=== PATIENT | female | born 1980 | race Caucasian/White ===

== ENCOUNTER → 2020-04-30 06:56 | Outpatient (BNVA) | payer SELFPAY | PROVIDERS: Visit Provider Surgery | DX: E66.3 Overweight (principal); K90.9 Intestinal malabsorption, unspecified; Z98.84 Bariatric surgery status | CPT/HCPCS: 99213 ==

== ENCOUNTER 2020-06-23 15:55 | Emergency (ER) | payer OTHER, SELFPAY ==
[2020-06-23 16:24] VITALS: BP 132/83; PULSE 78; RESP 16; TEMP 37.3; O2SAT 98; BMI 26.0
--- NOTE | 2020-06-23 16:41 | ED_ITS ---
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 Tetanus unknown. Dog's vaccination status unknown. Patient denies injury to other area, fever/chills complaint: animal bite Related Data Home Medications Medication Instructions Recorded Confirmed biotin 2,500 mcg capsule 5 mg PO DAILY 04/30/20 04/30/20 Previous Rx's Medication Instructions Recorded docusate sodium 100 mg capsule 100 mg PO DAILY #30 cap 06/10/20 amoxicillin-pot clavulanate 1 tab PO Q12H 7 Days #14 tab 06/23/20 [Augmentin] Allergies Allergy/AdvReac Type Severity Reaction Status Date / Time No Known Allergies Allergy Unverified 04/15/20 16:51 [No Known Allergies*] NKA Allergy Unknown Uncoded 01/21/20 00:00 Review of Systems Review of Systems: Constitutional: No Weight loss, No Fever, No Chills Musculoskeletal: +thigh pain Skin: +dog bite Neuro: No Weakness, No Numbness Yes all other systems are reviewed and are negative [facility] Past Medical History Attestation statement: The following information was validated with the patient. Medical History (Updated 06/23/20 @ 16:57 by [place] rTujillo) Intestinal malabsorption Surgical History (Updated 05/18/20 @ 11:40 by Mario Kumar CMA) History of carpal tunnel surgery Hx of removal of ovary S/P laparoscopic sleeve gastrectomy Family History Family History (Updated 05/18/20 @ 11:48 by Mario Kumar CMA) Father DM (diabetes mellitus) Mother HTN (hypertension) Arthritis Brother No problems noted. Sister No problems noted. Social History Social History (Updated 05/18/20 @ 11:51 by Mario Kumar CMA) Alcohol intake: never Smoking Status: Never smoker Smoked in Last 30 Days: No Substance Use Type: Marijuana Advance Directives: No Advance Directives Information Provided: Yes Physical Exam Vital Signs: Vital Signs: Last Vital Signs Temp 99.2 F 06/23/20 16:24 Pulse 78 11/25/20 16:24 Resp 16 06/23/20 16:24 BP 132/83 06/23/20 16:24 Pulse Ox 98 06/23/20 16:24 Body Mass Index 26.0 Const: General: cooperative and healthy appearing Orientation/consciousness: patient oriented x3 Limitations: no limitations HENMT: Head: Yes normal to inspection Ears: hearing grossly normal bilaterally General nose exam: Normal external nose present Face and sinus: Yes normal facial exam Eyes: General: appearance normal, both eyes and all related structures EOM: EOMs intact bilaterally Neck: Neck: Yes normal visual inspection Resp: Effort & Inspection: normal respiratory effort Skin: Other: +small abrasion and small puncture wound to Right posterior thigh. +mild swelling. No erythema, streaking, fluctuance or induration Neuro: General: patient oriented x3 Gait exam (Neuro): Normal gait present Extrem: General: Yes normal to inspection MDM - Animal Bite MDM Narrative Medical decision making narrative: On exam VSS, NAD/well-appearing, small puncture wound/abrasion with swelling noted to right posterior thigh. We called dog owners listed number, they called back and reported dog is not up-to-date with rabies vaccines Plan: Tetanus, rabies vaccine, rabies immune globulin, 1st dose of Augmentin Discharge Plan Discharge Clinical Impression: Dog bite Qualifiers: Encounter type: initial encounter Qualified Code(s): W54.0XXA - Bitten by dog, initial encounter Patient Disposition: Home, Self-Care Instructions: Animal Bite (ED) Additional Instructions: You were given the rabies vaccine & immune globulin, as well as tetanus vaccine, and the 1st dose of your antibiotic today in the ED Continue taking prescribed antibiotic You need to follow up in short-stay surgery for the remaining rabies vaccines as listed on her paperwork Should be re-evaluated in a couple days Dog bites have a high likelihood of infection, keep a good eye on the area, if swelling worsens, becomes red, comes to a head like a pimple, there streaking, you have fever return to the ED immediately Prescriptions: New amoxicillin-pot clavulanate [Augmentin] 875-125 mg tablet 1 tab PO Q12H 7 Days Qty: 14 RF: 0 No Action docusate sodium [Colace] 100 mg capsule 100 mg PO DAILY Qty: 30 RF: 2 biotin 2,500 mcg capsule 5 mg PO DAILY RF: 0 Referrals: Tere Roman, DO [Primary Care Provider] - 2 days
[2020-06-23] MEDS: Rabies Immune Globulin/PF 300 UNIT/ML VIAL 1249.2 UNIT IM (17:00)
[2020-06-23] MEDS: Rabies Vaccine (PCEC)/PF 1 ML VIAL IM (17:05)
[2020-06-23] MEDS: Amoxicillin/Potassium Clav 875 MG TABLET PO (17:14)
--- NOTE | 2020-06-23 18:02 | PC.NURSE ---
UNABLE TO CHART ON IMMUNOGLOBULIN PHARMACY ERROR WILL NOT ALLOW TO SAVE AND CHART. LOT [id number] GIVEN DIVIDED INTO 2 DOSE THO RVL AND LVL. ADDITION DOSE GIVEN BY [place] COVARRUBIAS TO RIGHT THIGH WOUND NICK.
--- NOTE | 2020-06-23 18:04 | PC.NURSE ---
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
--- NOTE | 2020-06-23 19:49 | PC.NURSE ---
PT ANIMAL BIT REPORT FILLED AND FAXED AND PHAMACY AND MEDICAL SHORT STAY FORMS FILLED AND FAXED.
== END 2020-06-23 17:25 | disposition home or self-care (01) ==
PROVIDERS: Emergency Provider Emergency Medicine; PCP Internal Medicine
DX: S70.371A Other superficial bite of right thigh, initial encounter (principal); S70.311A Abrasion, right thigh, initial encounter; M79.604 Pain in right leg; W54.0XXA Bitten by dog, initial encounter; Y93.9 Activity, unspecified; Y92.9 Unspecified place or not applicable; Y99.9 Unspecified external cause status; Z79.899 Other long term (current) drug therapy
CPT/HCPCS: 90375; 90471; 90472; 90675; 90715; 96372; 99284

== ENCOUNTER 2020-06-26 11:24 | Emergency (ER) | payer OTHER, SELFPAY ==
--- NOTE | 2020-06-26 11:52 | ED.GENADULT ---
HPI - General Adult General Chief complaint: General Medical Stated complaint: rabies shot Time Seen by Provider: 06/26/20 11:52 Source: patient Mode of arrival: ambulatory Limitations: no limitations History of Present Illness HPI narrative: 40 y/o female presents to the ER for her rabies vaccine. She was seen here on 06/23 and treated with her 1st dose after she was bit by a dog. With the holiday and weekend coverage she was unable to make an appointment with short-stay for her day 3 dose so she came to the ER for this. She has been taking her prescribed Augmentin and wound is healing. complaint: rabies shot Related Data Home Medications Medication Instructions Recorded Confirmed biotin 2,500 mcg capsule 5 mg PO DAILY 04/30/20 04/30/20 Previous Rx's Medication Instructions Recorded docusate sodium 100 mg capsule 100 mg PO DAILY #30 cap 06/10/20 amoxicillin-pot clavulanate 1 tab PO Q12H 7 Days #14 tab 06/23/20 [Augmentin] Allergies Allergy/AdvReac Type Severity Reaction Status Date / Time No Known Allergies Allergy Verified 06/26/20 11:59 [No Known Allergies*] NKA Allergy Unknown Unknown Uncoded 06/26/20 11:59 Review of Systems Review of Systems: Yes all other systems are reviewed and are negative PMFSH Past Medical History Attestation statement: The following information was validated with the patient. Medical History Intestinal malabsorption Surgical History History of carpal tunnel surgery Hx of removal of ovary S/P laparoscopic sleeve gastrectomy Family History Family History (Updated 05/18/20 @ 11:48 by Mario Kumar CMA) Father DM (diabetes mellitus) Mother HTN (hypertension) Arthritis Brother No problems noted. Sister No problems noted. Social History Social History (Updated 05/18/20 @ 11:51 by Mario Kumar CMA) Alcohol intake: never Smoking Status: Never smoker Substance Use Type: Marijuana Advance Directives: No Advance Directives Information Provided: Yes Physical Exam Vital Signs: Vital Signs: Last Vital Signs Temp 97.2 F 06/26/20 11:56 Pulse 67 06/26/20 11:56 Resp 17 06/26/20 11:56 BP 111/70 06/26/20 11:56 Pulse Ox 100 06/26/20 11:56 Body Mass Index 25.9 Appearance: Alert. Oriented X3. No acute distress. HEENT: normal inspection Respiratory: No respiratory distress. Skin: Skin warm and dry. Normal skin color. Normal skin turgor. No rashes. Extremities: left lower posterior thigh with superficial healing abrasions, no surrounding erythema or purulent drainage. Course Course Course Narrative: 40 yo female presenting for day 3 rabies shot. Unable to be done as outpatient today. Number provided for day #7 shot. Discharge Plan Discharge Clinical Impression: Dog bite Qualifiers: Encounter type: subsequent encounter Qualified Code(s): W54.0XXD - Bitten by dog, subsequent encounter Patient Disposition: Home, Self-Care Instructions: Rabies Vaccine (By injection) Additional Instructions: Call the number provided to arrange for additional Rabies Vaccinations. You are next due for your vaccine 7 days from the initial incounter. Continue to take the Augmentin to help prevent infection. The wound appears to be healing nicely. Prescriptions: No Action docusate sodium [Colace] 100 mg capsule 100 mg PO DAILY Qty: 30 RF: 2 amoxicillin-pot clavulanate [Augmentin] 875-125 mg tablet 1 tab PO Q12H 7 Days Qty: 14 RF: 0 biotin 2,500 mcg capsule 5 mg PO DAILY RF: 0
[2020-06-26 11:56] VITALS: BP 111/70; PULSE 67; RESP 17; TEMP 36.2; O2SAT 100; BMI 25.9
[2020-06-26] MEDS: Rabies Vaccine (PCEC)/PF 1 ML VIAL IM (12:05)
== END 2020-06-26 12:44 | disposition home or self-care (01) ==
PROVIDERS: Emergency Provider Internal Medicine; PCP Internal Medicine
DX: T14.8XXA Other injury of unspecified body region, initial encounter (principal); W54.0XXA Bitten by dog, initial encounter; Y93.9 Activity, unspecified; Y92.9 Unspecified place or not applicable; Y99.9 Unspecified external cause status; Z23 Encounter for immunization; Z98.84 Bariatric surgery status
CPT/HCPCS: 90471; 90675; 99283; 99284

== ENCOUNTER 2020-06-30 12:53 | Outpatient (REF) | payer OTHER, SELFPAY | END 2020-06-30 12:54 | disposition home or self-care (01) | LOC: HO.MDS 12:53 | PROVIDERS: PCP Internal Medicine; Visit Provider Physician Assistant | DX: Z29.14 Encounter for prophylactic rabies immune globulin (principal); S70.371D Other superficial bite of right thigh, subsequent encounter; W54.0XXD Bitten by dog, subsequent encounter; Z20.3 Contact with and (suspected) exposure to rabies | CPT/HCPCS: 90471; 90675 ==

== ENCOUNTER → 2020-07-08 08:03 | Outpatient (BNVA) | payer OTHER, SELFPAY | PROVIDERS: PCP Internal Medicine; Referring Provider Internal Medicine; Visit Provider Physician Assistant | DX: Z76.89 Persons encountering health services in other specified circumstances (principal) ==

== ENCOUNTER → 2020-07-13 08:13 | Outpatient (BNVA) | payer OTHER, SELFPAY | PROVIDERS: PCP Internal Medicine; Visit Provider Dietitian, Registered | DX: Z76.89 Persons encountering health services in other specified circumstances (principal) ==

== ENCOUNTER 2020-07-16 12:57 | Emergency (ER) | payer OTHER, SELFPAY ==
[2020-07-16 13:31] VITALS: BP 120/71; PULSE 66; RESP 18; TEMP 36.4; O2SAT 100; BMI 25.4
--- NOTE | 2020-07-16 13:37 | ED.GENADULT ---
HPI - General Adult General Chief complaint: General Medical Stated complaint: needs last rabies shot? Time Seen by Provider: 07/16/20 13:33 Source: patient Mode of arrival: ambulatory Limitations: no limitations History of Present Illness HPI narrative: 32-year-old female with no known past medical history presenting seeking her last rabies vaccination. Offers no complaints. She did try to contact short-stay surgery however they did not order some advice from the emergency room for her last vaccination. Her vaccination schedule as follows 06/23, 06/26, and today. Onset (ago): minute(s) Treatments prior to arrival: none Related Data Home Medications Medication Instructions Recorded Confirmed biotin 2,500 mcg capsule 5 mg PO DAILY 04/30/20 07/08/20 Previous Rx's Medication Instructions Recorded docusate sodium 100 mg capsule 100 mg PO DAILY #30 cap 06/10/20 amoxicillin-pot clavulanate 1 tab PO Q12H 7 Days #14 tab 06/23/20 [Augmentin] calcium citrate 250 mg 2 tab PO BID #120 tab 07/13/20 calcium-vitamin D3 5 mcg (200 unit) tablet Allergies Allergy/AdvReac Type Severity Reaction Status Date / Time No Known Allergies Allergy Verified 07/16/20 13:31 [No Known Allergies*] NKA Allergy Unknown Unknown Uncoded 06/26/20 11:59 Review of Systems Review of Systems: Constitutional: No Weight loss, No Fever, No Chills, No Night Sweats, No Fatigue, No Malaise ENT/Mouth: No Hearing loss, No Ear Pain, No Nasal Congestion, No Sinus Pain, No Hoarseness, No sore throat, No Rhinorrhea, No Swallowing Difficulty Eyes: No Eye Pain, No Vision Changes Cardiovascular: No Chest Pain Respiratory: No Cough, No Sputum, No Wheezing, No Smoke Exposure, No Dyspnea Gastrointestinal:No abdominal Pain Genitourinary: , No Dysuria Musculoskeletal: No joint pain, No Myalgias Skin: No rash Neuro: No Weakness, No Numbness, No Paresthesias, No Loss of Consciousness, No Dizziness, No Headache Heme/Lymph: No Bruising, No Bleeding,No Lymphadenopathy Endocrine: No Polyuria, No Polydipsia, No Temperature Intolerance Yes all other systems are reviewed and are negative [facility] Past Medical History Medical History (Updated 07/16/20 @ 13:41 by Corby Quiros, [employer] WORKER) BMI 25.0-25.9,adult Intestinal malabsorption Intestinal malabsorption following gastrectomy Surgical History (Updated 07/08/20 @ 09:56 by Karen Jarvis PA-C) History of carpal tunnel surgery Hx of removal of ovary S/P laparoscopic sleeve gastrectomy Family History Family History Father DM (diabetes mellitus) Mother HTN (hypertension) Arthritis Brother No problems noted. Sister No problems noted. Social History Social History Alcohol intake: never Smoking Status: Never smoker Substance Use Type: Marijuana Advance Directives: No Advance Directives Information Provided: Yes Physical Exam Vital Signs: Vital Signs: Last Vital Signs Temp 97.6 F 07/16/20 13:31 Pulse 66 07/16/20 13:31 Resp 18 07/16/20 13:31 BP 120/71 07/16/20 13:31 Pulse Ox 100 07/16/20 13:31 Body Mass Index 25.4 Reviewed Const: General: cooperative and healthy appearing; No acute distress or intoxicated appearing Nutritional Appearance: average body habitus Orientation/consciousness: patient oriented x3 Chest: Chest palpation & inspection: normal inspection of the chest Resp: Effort & Inspection: normal respiratory effort Cardio: Jugular venous distension: no JVD Skin: General skin exam: no rashes or lesions noted Neuro: General: patient oriented x3 Extrem: General: Yes normal to inspection Course Course Course Narrative: Given last rabies vaccination. Discharge Plan Discharge Clinical Impression: Encounter for repeat administration of rabies vaccination Patient Disposition: Home, Self-Care Instructions: Rabies Vaccine (By injection) Prescriptions: No Action docusate sodium [Colace] 100 mg capsule 100 mg PO DAILY Qty: 30 RF: 2 amoxicillin-pot clavulanate [Augmentin] 875-125 mg tablet 1 tab PO Q12H 7 Days Qty: 14 RF: 0 calcium citrate-vitamin D3 250 mg-5 mcg (200 unit) tablet 2 tab PO BID Qty: 120 RF: 11 biotin 2,500 mcg capsule 5 mg PO DAILY RF: 0 Referrals: Tere Roman DO [Primary Care Provider] - 1 week
[2020-07-16] MEDS: Rabies Vaccine (PCEC)/PF 1 ML VIAL IM (13:43)
== END 2020-07-16 13:50 | disposition home or self-care (01) ==
PROVIDERS: Emergency Provider Emergency Medicine Emergency Medical Services; PCP Internal Medicine
DX: Z20.3 Contact with and (suspected) exposure to rabies (principal)
CPT/HCPCS: 90471; 90675; 99282; 99284

== ENCOUNTER 2020-07-20 08:33 | Outpatient (REF) | payer OTHER, SELFPAY ==
[2020-07-20 09:12] LABS: Basophils Percent Auto 0.6 % (0-2); Eosinophils Absolute Auto 0.1 X10*3/uL (0.0-0.4); Eosinophils Percent Auto 2.8 % (0-4); Hematocrit 40.6 % (37-47); Hemoglobin 13.8 g/dl (12.0-16.0); Imm Gran Abs Auto 0.01 X10*3/uL (0.00-0.03); Imm Gran Pct Auto 0.3 % (0.0-0.4); Lymphocytes Absolute Auto 1.6 X10*3/uL (1.2-4.9); Lymphocytes Percent Auto 45.4 % (20-40); MANUAL DIFF FLAG NO; Mean Corpuscular Hemoglobin 30.5 pg (27.0-33.0); Mean Corpuscular Volume 89.8 fL (80-98); Mean Platelet Volume 10.6 fL (9.4-12.3); Monocytes Absolute Auto 0.3 X10*3/uL (0.1-1.2); Neutrophils Absolute Auto 1.6 X10*3/uL (2.0-8.3); Neutrophils Percent Auto 43.9 % (45-73); Platelet Count 144 X10*3/uL (160-400); Red Blood Count 4.52 X10*6/uL (4.20-5.50); Red Cell Distribution Width 13.7 % (11.0-16.0); White Blood Count 3.6 X10*3/uL (4.8-10.8)
[2020-07-20 09:57] LABS: Alanine Aminotransferase 13 U/L (0-31); Albumin Level 4.2 g/dL (3.5-5.0); Alkaline Phosphatase 47 U/L (39-117); Anion Gap 11 (12-20); Aspartate Amino Transferase 17 U/L (5-31); Bilirubin Total 0.9 mg/dL (0.0-1.0); Blood Urea Nitrogen 16 mg/dL (9-16); C Reactive Protein 0.11 mg/dL (< or = 0.50); Calcium 9.1 mg/dL (8.4-10.2); Carbon Dioxide 31 mmol/L (22-29); Chloride 103 mmol/L (96-108); Cholesterol 192 mg/dL; Estimated Glomerular Filt Rate > 60; Glucose Fasting 76 mg/dL (60-99); HDL Cholesterol 45 mg/dL; Iron 83 mcg/dL (30-160); LDL Cholesterol Calculated 133 mg/dl; Percent Iron Saturation 33 % (15-50); Sodium 141 mmol/L (135-145); Total Iron Binding Capacity 250 mcg/dL (228-428); Total Protein 6.1 g/dL (6.5-8.0); Triglycerides 74 mg/dL; Unsaturated Iron Binding 167 ug/dL
[2020-07-20 09:58] LABS: Estimated Average Glucose 91 mg/dL; Hemoglobin A1c % 4.8 %
[2020-07-20 10:19] LABS: Ferritin 61 ng/mL (10-122); TSH reflex Free T4 0.61 mIU/mL (0.32-4.0); Vitamin D 25-OH Total 50.3 ng/mL (>30)
[2020-07-20 10:29] LABS: Folate 12.7 ng/mL (> or = 4.0); Vitamin B12 797 pg/mL (200-900)
[2020-07-21 16:37] LABS: Calcium (PTHI) 9.1 mg/dL (8.6-10.2); PTHI 19 pg/mL (14-64)
[2020-07-21 18:57] LABS: Insulin Level Total 2.2 uIU/mL
[2020-07-24 14:57] LABS: Zinc 66 mcg/dL (60-130)
[2020-07-25 12:03] LABS: Vitamin B1 29 nmol/L (8-30)
[2020-07-25 23:32] LABS: Vitamin A 28 mcg/dL (38-98)
== END 2020-07-20 08:34 | disposition home or self-care (01) ==
LOC: HO.LAB 08:33
PROVIDERS: PCP Internal Medicine; Visit Provider Physician Assistant
DX: K91.2 Postsurgical malabsorption, not elsewhere classified (principal); Z90.3 Acquired absence of stomach [part of]; E66.01 Morbid (severe) obesity due to excess calories; Z68.25 Body mass index [BMI] 25.0-25.9, adult
CPT/HCPCS: 36415; 80053; 80061; 82306; 82607; 82728; 82746; 83036; 83525; 83540; 83970; 84425; 84443; 84590; 84630; 85025; 86140

== ENCOUNTER → 2020-08-24 10:31 | Outpatient (BNVA) | payer OTHER, SELFPAY | PROVIDERS: PCP Internal Medicine; Visit Provider Dietitian, Registered ==

== ENCOUNTER → 2020-09-23 08:11 | Outpatient (BNVA) | payer OTHER, SELFPAY | PROVIDERS: PCP Physician Assistant; Visit Provider Physician Assistant ==

== ENCOUNTER → 2020-09-27 08:24 | Outpatient (BNVA) | payer OTHER, SELFPAY | PROVIDERS: PCP Physician Assistant; Visit Provider Physician Assistant ==

== ENCOUNTER → 2020-10-15 07:27 | Outpatient (BNVA) | payer OTHER, SELFPAY | PROVIDERS: PCP Physician Assistant; Visit Provider Surgery ==

== ENCOUNTER → 2020-10-25 08:48 | Outpatient (BNVA) | payer OTHER, SELFPAY | PROVIDERS: PCP Physician Assistant; Visit Provider Physician Assistant ==

== ENCOUNTER → 2020-11-26 08:13 | Outpatient (BNVA) | payer OTHER, SELFPAY | PROVIDERS: PCP Physician Assistant; Visit Provider Surgery ==

== ENCOUNTER → 2020-11-30 11:08 | Outpatient (BNVA) | payer OTHER, SELFPAY | PROVIDERS: PCP Physician Assistant; Visit Provider Physician Assistant ==

== ENCOUNTER → 2021-01-03 07:44 | Outpatient (BNVA) | payer OTHER, SELFPAY | PROVIDERS: PCP Physician Assistant; Visit Provider Surgery ==

== ENCOUNTER → 2021-02-18 07:27 | Outpatient (BNVA) | payer OTHER, SELFPAY | PROVIDERS: PCP Physician Assistant; Visit Provider Surgery ==

== ENCOUNTER → 2021-03-07 10:56 | Outpatient (BNVA) | payer OTHER, SELFPAY | PROVIDERS: PCP Physician Assistant; Visit Provider Physician Assistant ==

== ENCOUNTER → 2021-04-08 08:08 | Outpatient (BNVA) | payer OTHER, SELFPAY | PROVIDERS: Visit Provider Physician Assistant Surgical ==

== ENCOUNTER 2021-04-11 06:38 | Outpatient (REF) | payer OTHER, SELFPAY ==
[2021-04-11 07:37] LABS: MANUAL DIFF FLAG NO
[2021-04-11 07:43] LABS: Eosinophils Absolute Auto 0.1 X10*3/uL (0.0-0.4); Eosinophils Percent Auto 3.4 % (0-4); Hematocrit 38.3 % (37-47); Hemoglobin 12.4 g/dl (12.0-16.0); Imm Gran Abs Auto 0.01 X10*3/uL (0.00-0.03); Imm Gran Pct Auto 0.3 % (0.0-0.4); Lymphocytes Absolute Auto 1.7 X10*3/uL (1.2-4.9); Lymphocytes Percent Auto 42.8 % (20-40); Mean Corpuscular HGB Conc 32.4 g/dl (31.0-35.0); Mean Corpuscular Hemoglobin 28.2 pg (27.0-33.0); Mean Platelet Volume 9.2 fL (9.4-12.3); Monocytes Absolute Auto 0.4 X10*3/uL (0.1-1.2); Monocytes Percent Auto 10.1 % (2-11); Neutrophils Absolute Auto 1.7 X10*3/uL (2.0-8.3); Neutrophils Percent Auto 42.4 % (45-73); Platelet Count 187 X10*3/uL (160-400); Red Cell Distribution Width 12.9 % (11.0-16.0); White Blood Count 3.9 X10*3/uL (4.8-10.8)
[2021-04-11 08:22] LABS: Alanine Aminotransferase 14 U/L (0-31); Albumin Level 3.9 g/dL (3.5-5.0); Alkaline Phosphatase 56 U/L (39-117); Anion Gap 10 (12-20); Aspartate Amino Transferase 20 U/L (5-31); Bilirubin Total 0.5 mg/dL (0.0-1.0); Blood Urea Nitrogen 17 mg/dL (9-16); C Reactive Protein 0.11 mg/dL (< or = 0.50); Calcium 9.3 mg/dL (8.4-10.2); Carbon Dioxide 29 mmol/L (22-29); Chloride 106 mmol/L (96-108); Cholesterol 176 mg/dL; Estimated Glomerular Filt Rate > 60; Glucose Random 84 mg/dL (60-115); HDL Cholesterol 75 mg/dL; Iron 65 mcg/dL (30-160); LDL Cholesterol Calculated 95 mg/dl; Percent Iron Saturation 15 % (15-50); Potassium 4.2 mmol/L (3.3-5.1); Sodium 141 mmol/L (135-145); Total Iron Binding Capacity 420 mcg/dL (228-428); Total Protein 5.8 g/dL (6.5-8.0); Triglycerides 32 mg/dL; Unsaturated Iron Binding 355 ug/dL
[2021-04-11 08:25] LABS: Estimated Average Glucose 100 mg/dL; Hemoglobin A1c % 5.1 %
[2021-04-11 08:42] LABS: Ferritin 5 ng/mL (10-122); TSH reflex Free T4 0.55 uIU/mL (0.32-4.0)
[2021-04-11 09:57] LABS: Folate 18.3 ng/mL (> or = 4.0); Vitamin B12 788 pg/mL (200-900)
[2021-04-12 09:40] LABS: Insulin Level Total 2.8 uIU/mL
[2021-04-12 16:52] LABS: Calcium (PTHI) 9.1 mg/dL (8.6-10.2); PTHI 18 pg/mL (14-64)
[2021-04-14 06:25] LABS: Zinc 78 mcg/dL (60-130)
[2021-04-15 03:16] LABS: Vitamin A 37 mcg/dL (38-98)
[2021-04-16 11:36] LABS: Vitamin B1 26 nmol/L (8-30)
== END 2021-04-11 06:39 | disposition home or self-care (01) ==
LOC: HO.LAB 06:38
PROVIDERS: Visit Provider Physician Assistant Surgical
DX: Z68.29 Body mass index [BMI] 29.0-29.9, adult (principal)
CPT/HCPCS: 36415; 80053; 80061; 82306; 82607; 82728; 82746; 83036; 83525; 83540; 83970; 84425; 84443; 84590; 84630; 85025; 86140

== ENCOUNTER 2021-04-22 08:58 | Outpatient (REF) | payer OTHER, SELFPAY ==
--- NOTE | ~2021-04-22 | FL_ITS ---
EXAMINATION: XR GI SERIES CLINICAL INFORMATION: Previous gastric reduction/sleeve surgery. Followup. COMPARISON: None TECHNIQUE: Routine upper GI air-contrast study was performed. FINDINGS: Following oral administration of thick barium and effervescent granules, there is normal propagation of bolus from the oral cavity through the pharynx, esophagus into stomach without any evidence of obstruction, narrowing or stricture. The stomach is folded into a C configuration resulting in slight emptying difficulty in supine lying position. It promptly emptied on prone position. Otherwise, the visualized stomach, duodenal bulb and the sweep are normal. No gastroesophageal reflux visualized. FLUOROSCOPY TIME: 2.8 minutes DOSE AREA PRODUCT: 30.318 uGy-m2 (microgray-meter squared) FL/FL upper GI series IMPRESSION: Evidence of previous gastric sleeve surgical changes with slightly folded stomach on itself resulting in mild difficulty in emptying of fundus in supine and upright views. No gastroesophageal reflux was seen.
== END 2021-04-22 08:59 | disposition home or self-care (01) ==
LOC: HO.XRAY 08:58
PROVIDERS: Visit Provider Physician Assistant Surgical
DX: K21.9 Gastro-esophageal reflux disease without esophagitis (principal); E66.9 Obesity, unspecified; Z68.29 Body mass index [BMI] 29.0-29.9, adult; Z71.3 Dietary counseling and surveillance
CPT/HCPCS: 74240; 97803

== ENCOUNTER → 2021-05-06 07:57 | Outpatient (BNVA) | payer OTHER, SELFPAY | PROVIDERS: Visit Provider Physician Assistant Surgical ==

== ENCOUNTER 2021-05-13 07:09 | Outpatient (REF) | payer OTHER, SELFPAY ==
[2021-05-19 15:26] LABS: Vitamin A 30 mcg/dL (38-98)
== END 2021-05-13 07:10 | disposition home or self-care (01) ==
LOC: HO.LAB 07:09
PROVIDERS: Visit Provider Physician Assistant Surgical
DX: E50.9 Vitamin A deficiency, unspecified (principal); E66.9 Obesity, unspecified
CPT/HCPCS: 36415; 84590

== ENCOUNTER → 2021-05-27 08:20 | Outpatient (BNVA) | payer OTHER, SELFPAY | PROVIDERS: Referring Provider Surgery; Visit Provider Dietitian, Registered | DX: E66.9 Obesity, unspecified (principal); Z68.30 Body mass index [BMI] 30.0-30.9, adult | CPT/HCPCS: 97803 ==

== ENCOUNTER → 2021-06-17 07:58 | Outpatient (BNVA) | payer OTHER, SELFPAY | PROVIDERS: Visit Provider Physician Assistant Surgical ==

== ENCOUNTER 2021-07-15 07:58 | Outpatient (REF) | payer OTHER, SELFPAY ==
[2021-07-15 10:33] LABS: Iron 60 mcg/dL (30-160); Percent Iron Saturation 14 % (15-50); Total Iron Binding Capacity 444 mcg/dL (228-428); Unsaturated Iron Binding 384 ug/dL
[2021-07-15 10:45] LABS: Ferritin 9 ng/mL (10-122); Vitamin D 25-OH Total 40.8 ng/mL (>30)
[2021-07-15 11:06] LABS: Folate > 20.0 ng/mL (> or = 4.0); Vitamin B12 1024 pg/mL (200-900)
[2021-07-19 15:46] LABS: Zinc 94 mcg/dL (60-130)
[2021-07-20 21:27] LABS: Vitamin A 30 mcg/dL (38-98)
[2021-07-22 09:31] LABS: Vitamin B1 53 nmol/L (8-30)
== END 2021-07-15 07:59 | disposition home or self-care (01) ==
LOC: HO.LAB 07:58
PROVIDERS: PCP Internal Medicine; Visit Provider Physician Assistant Surgical
DX: E66.9 Obesity, unspecified (principal); Z68.30 Body mass index [BMI] 30.0-30.9, adult; E50.9 Vitamin A deficiency, unspecified; K21.9 Gastro-esophageal reflux disease without esophagitis; Z90.3 Acquired absence of stomach [part of]
CPT/HCPCS: 36415; 82306; 82607; 82728; 82746; 83540; 84425; 84590; 84630

== ENCOUNTER → 2021-09-16 08:10 | Outpatient (BNVA) | payer OTHER, SELFPAY | PROVIDERS: Visit Provider Physician Assistant Surgical ==

== ENCOUNTER 2021-10-07 13:20 | Outpatient (REF) | payer OTHER, SELFPAY ==
[2021-10-07 14:40] LABS: Iron 73 mcg/dL (30-160); Percent Iron Saturation 19 % (15-50); Total Iron Binding Capacity 377 mcg/dL (228-428); Unsaturated Iron Binding 304 ug/dL
[2021-10-07 15:01] LABS: Vitamin D 25-OH Total 43.7 ng/mL (>30)
[2021-10-13 12:51] LABS: Vitamin A 32 mcg/dL (38-98)
== END 2021-10-07 13:21 | disposition home or self-care (01) ==
LOC: HO.LAB 13:20
PROVIDERS: PCP Internal Medicine; Visit Provider Physician Assistant Surgical
DX: E50.9 Vitamin A deficiency, unspecified (principal); K91.2 Postsurgical malabsorption, not elsewhere classified; Z90.3 Acquired absence of stomach [part of]
CPT/HCPCS: 36415; 82306; 83540; 84590

== ENCOUNTER → 2021-10-14 14:48 | Outpatient (BNVA) | payer OTHER, SELFPAY | PROVIDERS: PCP Internal Medicine; Referring Provider Internal Medicine; Visit Provider Physician Assistant Surgical | DX: Z13.89 Encounter for screening for other disorder (principal) ==

== ENCOUNTER → 2021-12-23 10:27 | Outpatient (BNVA) | payer OTHER, SELFPAY | PROVIDERS: PCP Internal Medicine; Visit Provider Physician Assistant Surgical | DX: E66.9 Obesity, unspecified (principal) ==

== ENCOUNTER 2022-02-17 06:43 | Outpatient (REF) | payer OTHER, SELFPAY ==
[2022-02-17 06:58] LABS: MANUAL DIFF FLAG NO
[2022-02-17 07:54] LABS: Basophils Percent Auto 0.8 % (0-2); Eosinophils Absolute Auto 0.1 X10*3/uL (0.0-0.4); Eosinophils Percent Auto 2.3 % (0-4); Hematocrit 45.9 % (37.0-47.0); Hemoglobin 15.2 g/dl (12.0-16.0); Imm Gran Abs Auto 0.01 X10*3/uL (0.00-0.03); Imm Gran Pct Auto 0.2 % (0.0-0.4); Lymphocytes Absolute Auto 1.7 X10*3/uL (1.2-4.9); Lymphocytes Percent Auto 33.7 % (20-40); Mean Corpuscular HGB Conc 33.1 g/dl (31.0-35.0); Mean Corpuscular Hemoglobin 29.5 pg (27.0-33.0); Mean Corpuscular Volume 89.1 fL (80.0-98.0); Mean Platelet Volume 9.5 fL (9.4-12.3); Monocytes Absolute Auto 0.4 X10*3/uL (0.1-1.2); Monocytes Percent Auto 8.3 % (2-11); Neutrophils Absolute Auto 2.8 x10*3/uL (2.0-8.3); Neutrophils Percent Auto 54.7 % (45-73); Platelet Count 212 X10*3/uL (160-400); Red Blood Count 5.15 X10*6/uL (4.20-5.50); Red Cell Distribution Width 12.2 % (11.0-16.0); White Blood Count 5.2 X10*3/uL (4.8-10.8)
[2022-02-17 08:20] LABS: Alanine Aminotransferase 11 U/L (0-31); Albumin Level 4.4 g/dL (3.5-5.0); Alkaline Phosphatase 59 U/L (39-117); Anion Gap 12 (12-20); Aspartate Amino Transferase 19 U/L (5-31); Bilirubin Total 0.7 mg/dL (0.0-1.0); Blood Urea Nitrogen 17 mg/dL (9-16); C Reactive Protein 0.16 mg/dL (< or = 0.50); Calcium 9.5 mg/dL (8.4-10.2); Carbon Dioxide 27 mmol/L (22-29); Chloride 104 mmol/L (96-108); Cholesterol 204 mg/dL; Estimated Glomerular Filt Rate > 60; Glucose Random 81 mg/dL (60-115); HDL Cholesterol 69 mg/dL; Iron 82 mcg/dL (30-160); LDL Cholesterol Calculated 126 mg/dl; Percent Iron Saturation 20 % (15-50); Potassium 4.4 mmol/L (3.3-5.1); Sodium 139 mmol/L (135-145); Total Iron Binding Capacity 402 mcg/dL (228-428); Total Protein 6.8 g/dL (6.5-8.0); Triglycerides 49 mg/dL; Unsaturated Iron Binding 320 ug/dL
[2022-02-17 08:43] LABS: Ferritin 11 ng/mL (10-250); Insulin 8 uU/mL (2-29); TSH reflex Free T4 0.65 uIU/mL (0.32-4.0); Vitamin D 25-OH Total 42.1 ng/mL (>30)
[2022-02-17 08:45] LABS: Estimated Average Glucose 94 mg/dL; Hemoglobin A1c % 4.9 %
[2022-02-17 10:54] LABS: Folate > 20.0 ng/mL (> or = 4.0); Vitamin B12 965 pg/mL (200-900)
[2022-02-21 15:52] LABS: Calcium (PTHI) 9.6 mg/dL (8.6-10.2); PTHI 15 pg/mL (16-77)
[2022-02-22 12:52] LABS: Zinc 111 mcg/dL (60-130)
[2022-02-24 17:11] LABS: Vitamin A 34 mcg/dL (38-98)
[2022-02-25 06:56] LABS: Vitamin B1 58 nmol/L (8-30)
== END 2022-02-17 06:44 | disposition home or self-care (01) ==
LOC: HO.LAB 06:43
PROVIDERS: Visit Provider Physician Assistant Surgical
DX: Z98.84 Bariatric surgery status (principal)
CPT/HCPCS: 36415; 80053; 80061; 82306; 82607; 82728; 82746; 83036; 83525; 83540; 83970; 84425; 84443; 84590; 84630; 85025; 86140

== ENCOUNTER 2022-02-27 09:02 | Emergency (ER) | payer OTHER, SELFPAY ==
[2022-02-27 09:07] VITALS: BP 125/76; PULSE 66; RESP 16; TEMP 36.6; O2SAT 99; BMI 34.2
--- NOTE | 2022-02-27 09:52 | ED.GENADULT ---
HPI - General Adult General Chief complaint: Back Pain/Injury Stated complaint: right side back pain, hurts to breathe Time Seen by Provider: 02/27/22 09:52 Source: patient Mode of arrival: ambulatory Limitations: no limitations History of Present Illness HPI narrative: Patient is a 42 year old female presenting to the emergency department today with side pain. Patient states that for the last day she has had right sided pain that is worse with deep breathing. Patient denies any dizziness, lightheadedness, abdominal pain, nausea, vomiting, fever, chills, blurry vision, double vision, loss of vision, chest pain, difficulty breathing, shortness of breath, back pain, night sweats, pain with urination, increased urinary frequency, increased urinary urgency, blood in her urine or stool, syncope or a near syncopal episode, recent trauma or falls, bowel incontinence, bladder incontinence, bowel retention, bladder retention, or any other complaints at this time. Onset (ago): day(s) (1) Radiation: non-radiation Severity: mild Severity scale (1-10): 2 Quality: dull Relieving factors: other (deep breaths) Exacerbating factors: none Associated symptoms: denies other symptoms Treatments prior to arrival: NSAID Related Data Home Medications Medication Instructions Recorded Confirmed biotin 2,500 mcg capsule 5 mg PO DAILY 04/30/20 02/10/22 celebrate MVI PO DAILY 12/23/21 02/10/22 fluoxetine 10 mg capsule 30 mg PO DAILY 02/10/22 02/10/22 Previous Rx's Medication Instructions Recorded iron,carbonyl 65 mg-vitamin C 125 1 tab PO DAILY #30 tabs 07/15/21 mg tablet,delayed release (Vitron-C) vitamin A 10,000 unit capsule 1 cap PO DAILY #30 caps 12/28/21 calcium citrate 500 mg PO BID #360 tabs 12/30/21 cyclobenzaprine 10 mg tablet 10 mg PO TID PRN muscle spasm 7 02/27/22 days #21 tabs Allergies Allergy/AdvReac Type Severity Reaction Status Date / Time No Known Allergies Allergy Verified 10/14/21 15:03 [No Known Allergies*] NKA Allergy Unknown Unknown Uncoded 11/30/20 11:08 Review of Systems Constitutional: Constitutional: Reports no additional constitutional complaints, Denies chills, Denies fever(s) and Denies night sweats Eyes: Eyes: Reports no additional eye complaints, Denies blurry vision, Denies change in vision, Denies diplopia, Denies eye discharge, Denies loss of vision and Denies eye pain ENT: Denies dizziness Cardiovascular: Cardiovascular: Reports no additional cardiovascular complaints, Denies chest pain, Denies lightheadedness, Denies Loss of Consciousness and Denies dyspnea Respiratory: Respiratory: Reports no additional respiratory complaints and Denies dyspnea Gastrointestinal: Gastrointestinal: Reports no additional gastrointestinal complaints, Denies abdominal pain, Denies melena, Denies hematochezia, Denies change in bowel habits and Denies change in stool character Genitourinary: Genitourinary: Denies hematuria, Denies urinary frequency, Denies dysuria, Denies urinary incontinence, Denies urinary hesitancy and Denies urinary urgency Musculoskeletal: Musculoskeletal: Reports no additional musculoskeletal complaints, Denies numbness and Denies tingling Neurologic: Denies dizziness, Denies loss of vision, Denies numbness and Denies tingling Psychiatric: Psychiatric: Reports no additional psychiatric complaints Endocrine: Endocrine: Reports no additional endocrine complaints Hematologic/Lymphatic: Hematologic/Lymphatic: Reports no additional hematologic/lymphatic complaints Allergic/Immunologic: Allergic/Immunologic: Reports no additional allergic/immunologic complaints PMF Past Medical History Attestation statement: The following information was validated with the patient. Source: old records reviewed Medical History BMI 25.0-25.9,adult Chronic constipation Intestinal malabsorption Intestinal malabsorption following gastrectomy Surgical History History of carpal tunnel surgery Hx of removal of ovary S/P laparoscopic sleeve gastrectomy Family History Family History Father DM (diabetes mellitus) Mother HTN (hypertension) Arthritis Brother No problems noted. Sister No problems noted. 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 Physical Exam ED Vital Signs: Vital Signs - 24 hr 08/01/22 09:07 Temperature 97.8 F Pulse Rate 66 Respiratory Rate 16 Blood Pressure 125/76 Pulse Oximetry 99 Oxygen Delivery Method Room Air BMI result Body Mass Index 34.2 Const General: cooperative, no acute distress, alert and awake Nutritional Appearance: well nourished Orientation/consciousness: patient oriented x3 Limitations: no limitations HENMT Head: Yes normal to inspection and Yes atraumatic Ears: hearing grossly normal bilaterally and external ears normal General nose exam: Normal external nose present, no nasal discharge noted and no epistaxis Face and sinus: Yes normal facial exam, No abrasion and No laceration Mouth: Normal oral and palatal mucosa present, no drooling and no muffled voice Eyes General: appearance normal, both eyes and all related structures Periorbital: periorbital findings normal Eyelids: Yes eyelids normal Conjunctivae: conjunctivae normal Pupils: Equal, round and reactive pupils present EOM: EOMs intact bilaterally Neck Neck: Yes normal visual inspection, Yes full ROM and Yes no lymphadenopathy Chest Chest palpation & inspection: normal inspection of the chest Resp Effort & Inspection: normal respiratory effort and able to speak in complete sentences Auscultation: clear to auscultation bilaterally Cardio Rate: regular rate Rhythm: regular rhythm GI Inspection: Yes normal to inspection Neuro General: patient oriented x3 and moves all extremities Cranial nerves: Yes Equal, round and reactive pupils present Cognition (Neuro): normal cognition Motor exam (neuro): 5/5 motor strength present throughout Sensory Exam: Normal double simultaneous stimulation for sensation Coordination: [id number] test normal Extrem General: Yes normal to inspection, Yes full ROM and Yes capillary refill normal Psych Appearance: grossly normal Mental Status: mental status grossly normal Affect: normal affect Attitude: cooperative Thought process: Normal thought process present Thought content: Normal thought content present Insight: Good insight present (Psych) Medical Decision Making MDM Narrative Medical decision making narrative: Patient is a 42 year old female presenting to the emergency department today with right side pain. Patient's physical exam was unremarkable. I explained my physical exam findings to the patient. I answered all questions asked by the patient. Patient received IM toradol and PO Flexeril which she stated helped her symptoms significantly. I stressed the importance of the patient taking her medication as prescribed. I stressed the importance of the patient following up with her primary care provider. I stressed the importance of the patient returning to the emergency department immediately if her symptoms were to worsen or if she were to develop any dizziness, shortness of breath, difficulty breathing, chest pain, blurry vision, loss of vision, nausea, vomiting, abdominal pain, fever, chills, back pain, or any other complaints. Patient verbalized agreement and understanding with this treatment plan and discharge. Differential Diagnosis Differential Diagnosis: chest wall pain Medical Records Medical records reviewed: Yes I reviewed the patient's medical records. Discharge Plan Discharge Clinical Impression: Acute costochondritis Patient Disposition: Home, Self-Care Instructions: Costochondritis (ED) Additional Instructions: Follow up with your primary care provider. Return to the emergency department immediately if your symptoms worsen or if you develop any dizziness, shortness of breath, difficulty breathing, chest pain, blurry vision, loss of vision, nausea, vomiting, abdominal pain, fever, chills, back pain, or any other complaints. Prescriptions: New cyclobenzaprine 10 mg tablet 10 mg PO TID PRN (Reason: muscle spasm) 7 Days Qty: 21 0RF No Action Vitron-C 65 mg iron- 125 mg tablet,delayed release (DR/EC) 1 tab PO DAILY Qty: 30 2RF Rx Instructions: swallow whole; do not chew/break/dissolve/open vitamin A 10,000 unit capsule 1 cap PO DAILY Qty: 30 1RF calcium citrate 250 mg calcium tablet 500 mg PO BID Qty: 360 1RF biotin 2,500 mcg capsule 5 mg PO DAILY fluoxetine 10 mg capsule 30 mg PO DAILY celebrate MVI PO DAILY Referrals: Jayna Frederick MD [Primary Care Provider] - Stand Alone Forms: Work/School Release Interventions: ED Discharge Assessment Last Done: 02/27/22 11:24 Discharge Date/Time: 02/27/22 11:25 Print Language: [place]
[2022-02-27] MEDS: Cyclobenzaprine HCl 10 MG TABLET PO (10:02)
[2022-02-27] MEDS: Ketorolac Tromethamine 15 MG/ML VIAL IM (10:02)
--- NOTE | 2022-02-27 11:23 | PC.NURSE ---
PT EVALUATED BY PROVIDER PLAN IS FOR DC HOME. PT AGREEABLE TO PLAN. MEDICATED ORDERED. PT AMBULATORY, MOVING ALL EXTREMITIES. +CMS
== END 2022-02-27 11:25 | disposition home or self-care (01) ==
PROVIDERS: Emergency Provider Emergency Medicine; PCP Internal Medicine
DX: M94.0 Chondrocostal junction syndrome [Tietze] (principal); M54.50 Low back pain, unspecified; Z79.899 Other long term (current) drug therapy
CPT/HCPCS: 96372; 99283; 99284; J1885

== ENCOUNTER → 2023-04-27 08:48 | Outpatient (BNVA) | payer OTHER, SELFPAY | PROVIDERS: PCP Internal Medicine; Visit Provider Dietitian, Registered | DX: E66.9 Obesity, unspecified (principal); Z98.84 Bariatric surgery status; Z71.3 Dietary counseling and surveillance | CPT/HCPCS: 97803 ==

== ENCOUNTER 2023-05-14 15:23 | Outpatient (AMB) | payer OTHER, SELFPAY ==
--- NOTE | 2023-05-14 15:31 | A.OFFVIS_ITS ---
Intake VS Expanded 05/14/23 15:40 BP 155/73 H Blood Pressure Location Rt brachial Blood Pressure Position Sitting Pulse 76 Pulse Source Pulse Oximeter Temp 97.4 F Temperature Source Temporal Artery Scan Pulse Oximetry 99 Oxygen Delivery Method Room Air Height 5 ft Weight 201 lb 9.6 oz BMI 39.4 Body Fat % 42.7 Body Fat Mass 86.0 Fat Free Mass 115.6 Visceral Fat Rating 11.0 Body Water % 40.9 Body Water Mass 82.4 Muscle Mass/Score 109.6 Basal Metabolic Rate/Score 1,617 Intake Visit Reasons: (OV) PO LSG 01/13/20 Allergies No Known Allergies [No Known Allergies*] Allergy (Verified 05/14/23 15:34) NKA Allergy (Unknown, Uncoded 11/30/20 11:08) Unknown Medication List - Last Reconciled 05/14/23 by [place] Jade [celebrate MVI PO DAILY] HPI HPI Comments History of Present Illness Details 43-year-old female returns to the office today for follow-up. She had been lost to follow-up prior to her last appointment with Nighat agudelo dietitian. She is approximately 3 years 4 months post sleeve gastrectomy performed in December 2019, 01/13/2020. At her last follow-up in March, follow- up yearly labs were ordered 04/27/2023 although not yet done. She was given a meal plan at her appointment with Elizabeth at the end of March as follows: Restarted MVI over the last 2 weeks but forgets on some days. meal plan: 8am celebrate rebuild 2 scoops in 8oz un sweetened soy milk (her preference for all products) 12pm protein bar, one bar (20 gm) 3pm shake 2 scoops in 8 oz soy milk 6 pm dinner 4oz protein and 3 oz veg - s he has a food scale Drinking 64 oz water, 4 oz pepsi daily, power aid regular juice. Exercise: none in 2 months, has [employer] fitness membership. [facility] Medical History Chronic constipation Intestinal malabsorption following gastrectomy BMI 25.0-25.9,adult Intestinal malabsorption Surgical History Hx of removal of ovary History of carpal tunnel surgery S/P laparoscopic sleeve gastrectomy Family History Father DM (diabetes mellitus) Mother HTN (hypertension) Arthritis Brother No problems noted. Sister No problems noted. 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 Review of Systems Const All systems reviewed & are unremarkable except as noted in HPI and below Physical Exam Vital Signs: Last Vital Signs Temp 97.4 F 05/14/23 15:40 Pulse 76 05/14/23 15:40 BP 155/73 H 05/14/23 15:40 Pulse Ox 99 05/14/23 15:40 Oxygen Delivery Method Room Air 05/14/23 15:40 BMI result Body Mass Index 39.4 Const General: healthy appearing and no acute distress Resp Effort & Inspection: normal respiratory effort Auscultation: clear to auscultation bilaterally Cardio Rate: regular rate Rhythm: regular rhythm GI Auscultation: normal bowel sounds Extrem General: Yes normal to inspection Assessment & Plan Assessment & Plan (1) Obesity (BMI 30.0-34.9): Code(s): E66.9 - Obesity, unspecified Plan: Change meal plan: 8am celebrate rebuild 1 scoop in 8oz unsweetened soy milk (her preference for all products) 12pm protein bar, one bar (20 gm) 3pm shake 2 scoops in 8 oz soy milk 6 pm dinner 7 for couples of protein and 7 for couples vegetables Patient was given instruction on exercise, return to the gym, she has a membership to [employer]. Goal is burning 300 calories daily using the treadmill or stationary bike or elliptical. Reminded to get labs done that were ordered at the end of March. She will return to the office in 3 weeks time. Coding Level of Care Code Est Pt Level 4 (23265) Diagnoses Obesity (BMI 30.0-34.9) E66.9 Time Spent (min) 40
[2023-05-14 15:40] VITALS: BP 155/73; PULSE 76; TEMP 36.3; O2SAT 99; BMI 39.4
== END 2023-05-14 16:16 | disposition home or self-care (01) ==
PROVIDERS: PCP Internal Medicine; Visit Provider Physician Assistant Surgical
DX: E66.9 Obesity, unspecified (principal); Z68.39 Body mass index [BMI] 39.0-39.9, adult; Z90.3 Acquired absence of stomach [part of]; Z98.84 Bariatric surgery status
CPT/HCPCS: 99214

== ENCOUNTER → 2023-05-14 15:23 | Outpatient (BNVA) | payer OTHER, SELFPAY | PROVIDERS: PCP Internal Medicine; Visit Provider Physician Assistant Surgical ==

== ENCOUNTER 2023-05-15 16:00 | Outpatient (AMB) | payer OTHER, SELFPAY ==
--- NOTE | 2023-05-15 16:18 | A.OFFWM_ITS ---
Intake Intake Visit Reasons: VIDEO PO LSG 01/13/20 Allergies No Known Allergies [No Known Allergies*] Allergy (Verified 05/14/23 15:34) NKA Allergy (Unknown, Uncoded 11/30/20 11:08) Unknown [facility] Medical History Chronic constipation Intestinal malabsorption following gastrectomy BMI 25.0-25.9,adult Intestinal malabsorption Surgical History Hx of removal of ovary History of carpal tunnel surgery S/P laparoscopic sleeve gastrectomy Family History Father DM (diabetes mellitus) Mother HTN (hypertension) Arthritis Brother No problems noted. Sister No problems noted. 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 She reported some stressors such as her aunt being on hospice and helping her mother care for her. Patient stated that she started eating and starting drinking daily which she had never done. Patient is currently in therapy at [facility] weekly. She had completed an intake in the past with O[facility] for Binge eating but did not do the program. Presenting Concerns Referral Source self/provider Reason for referral weight gain Precipitating Event emotional eating/binge eating Living Situation Current Living Situation Relative's/Guardian's Efrain At risk of losing current housing? No Satisfied with current living situation? Yes Comments Patient lives with her mother and sister. Food/Weight/Diet Expectations of change weight loss and maintenance History/Relationship with food Pt stated that she will eat when she is bored or stressed or angry. History/Relationship with weight She reported being overweight all of her life. History/Relationship with dieting gastric sleeve in December of 2019. Her lowest was 122lbs and her heaviest was 270lbs. She is now at 200lbs. Social History Developmental history and status no issues known Legal Involvement and History Current or historical involvement with the legal system? none Education Currently enrolled in educational program? No Interested in further educational program? 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 None Service Service? No Mental Health and Addiction Treatment Current/Past substance abuse? No Current/Past addictive behavior concerns? No Assessment & Plan Assessment & Plan (1) Binge-eating disorder, mild: Code(s): F50.81 - Binge eating disorder (2) S/P laparoscopic sleeve gastrectomy: Comment: DOS 01/13/20, Dr. Davis Code(s): Z98.84 - Bariatric surgery status (3) Obesity (BMI 30.0-34.9): Code(s): E66.9 - Obesity, unspecified Plan Patient reported struggling with overeating, emotional eating/binge eating due to person stressors. She is interested in group therapy and appropriate for that level of care. Telehealth Telehealth Location of provider rendering services: other Location of patient: other Patient Identification confirmed using: Name, : Yes Telehealth method: video Patient verbally consented to treatment: Yes Patient verbally consented to billing insurance company: Yes Patient informed of any privacy concerns related to visit: Yes Minutes spent on Phone/Video with Pt.: 45 Coding Level of Care Code Tele Psy Diag Eval (26658) Diagnoses Binge-eating disorder, mild F50.81 S/P laparoscopic sleeve gastrectomy Z98.84 Obesity (BMI 30.0-34.9) E66.9 Time Spent (min) 50
== END 2023-05-28 11:41 | disposition home or self-care (01) ==
LOC: HO.HBST 05-16 08:15
PROVIDERS: PCP Internal Medicine; Visit Provider Counselor Mental Health
DX: F50.81 Binge eating disorder (principal); E66.9 Obesity, unspecified; Z68.39 Body mass index [BMI] 39.0-39.9, adult; Z98.84 Bariatric surgery status
CPT/HCPCS: 90791

== ENCOUNTER → 2023-05-15 16:00 | Outpatient (BNVA) | payer OTHER, SELFPAY | PROVIDERS: PCP Internal Medicine; Visit Provider Counselor Mental Health ==

== ENCOUNTER 2023-05-18 08:21 | Outpatient (REF) | payer OTHER, SELFPAY ==
[2023-05-18 08:32] LABS: MANUAL DIFF FLAG NO
[2023-05-18 08:38] LABS: Basophils Percent Auto 0.7 % (0-2); Eosinophils Absolute Auto 0.2 X10*3/uL (0.0-0.4); Eosinophils Percent Auto 3.4 % (0-4); Hemoglobin 15.3 g/dl (12.0-16.0); Imm Gran Abs Auto 0.03 X10*3/uL (0.00-0.03); Imm Gran Pct Auto 0.5 % (0.0-0.4); Lymphocytes Absolute Auto 1.9 X10*3/uL (1.2-4.9); Lymphocytes Percent Auto 31.6 % (20-40); Mean Corpuscular Hemoglobin 31.1 pg (27.0-33.0); Mean Corpuscular Volume 91.5 fL (80.0-98.0); Mean Platelet Volume 9.3 fL (9.4-12.3); Monocytes Absolute Auto 0.5 X10*3/uL (0.1-1.2); Monocytes Percent Auto 7.9 % (2-11); Neutrophils Absolute Auto 3.4 x10*3/uL (2.0-8.3); Neutrophils Percent Auto 55.9 % (45-73); Platelet Count 217 X10*3/uL (160-400); Red Blood Count 4.92 X10*6/uL (4.20-5.50); White Blood Count 6.1 X10*3/uL (4.8-10.8)
[2023-05-18 08:59] LABS: Estimated Average Glucose 94 mg/dL; Hemoglobin A1c % 4.9 % (<6.0)
[2023-05-18 09:11] LABS: Anion Gap 15 (12-20); Blood Urea Nitrogen 12 mg/dL (9-16); C Reactive Protein 0.98 mg/dL (< or = 0.50); Calcium 9.4 mg/dL (8.4-10.2); Carbon Dioxide 24 mmol/L (22-29); Chloride 106 mmol/L (96-108); Cholesterol 205 mg/dL (<200); Estimated Glomerular Filt Rate > 60; Glucose Random 88 mg/dL (60-115); HDL Cholesterol 46 mg/dL (>40); Iron 75 mcg/dL (30-160); LDL Cholesterol Calculated 139 mg/dL (<100); Percent Iron Saturation 26 % (15-50); Potassium 4.6 mmol/L (3.3-5.1); Sodium 140 mmol/L (135-145); Total Iron Binding Capacity 290 mcg/dL (228-428); Triglycerides 100 mg/dL (<150); Unsaturated Iron Binding 215 ug/dL
[2023-05-18 09:32] LABS: Ferritin 48 ng/mL (10-250); Insulin 11 uU/mL (2-29); TSH reflex Free T4 0.41 uIU/mL (0.32-4.0); Vitamin D 25-OH Total 35.9 ng/mL (>30)
[2023-05-18 09:35] LABS: Folate 11.6 ng/mL (> or = 4.0); Vitamin B12 1057 pg/mL (200-900)
[2023-05-21 11:04] LABS: Calcium (PTHI) 9.2 mg/dL (8.6-10.2); PTHI 39 pg/mL (16-77)
[2023-05-22 01:29] LABS: Zinc 74 mcg/dL (60-130)
[2023-05-23 14:33] LABS: Vitamin B1 7 nmol/L (8-30)
[2023-05-24 03:09] LABS: Vitamin A 35 mcg/dL (38-98)
== END 2023-05-18 08:22 | disposition home or self-care (01) ==
LOC: HO.LAB 08:21
PROVIDERS: Visit Provider Physician Assistant Surgical
DX: E66.9 Obesity, unspecified (principal); E50.9 Vitamin A deficiency, unspecified; K91.2 Postsurgical malabsorption, not elsewhere classified; Z90.3 Acquired absence of stomach [part of]
CPT/HCPCS: 36415; 80048; 80061; 82306; 82607; 82728; 82746; 83036; 83525; 83540; 83970; 84425; 84443; 84590; 84630; 85025; 86140

== ENCOUNTER → 2023-05-25 10:27 | Outpatient (BNVA) | payer OTHER, SELFPAY | PROVIDERS: PCP Internal Medicine; Visit Provider Dietitian, Registered | DX: E66.9 Obesity, unspecified (principal); Z98.84 Bariatric surgery status; Z71.3 Dietary counseling and surveillance | CPT/HCPCS: 97803 ==

== ENCOUNTER 2023-06-28 16:00 | Outpatient (AMB) | payer SELFPAY ==
--- NOTE | 2023-06-28 16:40 | A.OFFWM_ITS ---
Intake Intake Visit Reasons: VIDEO PO LSG 01/13/20 Allergies No Known Allergies [No Known Allergies*] Allergy (Verified 05/14/23 15:34) NKA Allergy (Unknown, Uncoded 11/30/20 11:08) Unknown [facility] Medical History Chronic constipation Intestinal malabsorption following gastrectomy BMI 25.0-25.9,adult Intestinal malabsorption Surgical History Hx of removal of ovary History of carpal tunnel surgery S/P laparoscopic sleeve gastrectomy Family History Father DM (diabetes mellitus) Mother HTN (hypertension) Arthritis Brother No problems noted. Sister No problems noted. 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 It disrupts her sleep and also gets in the way of exercise. She will call her doctor, chiropractor and other avenues to help. Pt presents for an appointment due to weight gain and binge eating since weight loss surgery in 2019. She reported some stressors such as her aunt being on hospice and helping her mother care for her. Patient stated that she started eating and starting drinking daily which she had never done. Patient is currently in therapy at [facility] weekly. She had completed an intake in the past with Olim[facility] for Binge eating but did not do the program. Presenting Concerns Referral Source self/provider Reason for referral weight gain Precipitating Event emotional eating/binge eating Living Situation Current Living Situation Relative's/Guardian's Efrain At risk of losing current housing? No Satisfied with current living situation? Yes Comments Patient lives with her mother and sister. Food/Weight/Diet Expectations of change weight loss and maintenance History/Relationship with food Pt stated that she will eat when she is bored or stressed or angry. History/Relationship with weight She reported being overweight all of her life. History/Relationship with dieting gastric sleeve in December of 2019. Her lowest was 122lbs and her heaviest was 270lbs. She is now at 200lbs. Social History Developmental history and status no issues known Legal Involvement and History Current or historical involvement with the legal system? none Education Currently enrolled in educational program? No Interested in further educational program? 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 None Service Service? No Mental Health and Addiction Treatment Current/Past substance abuse? No Current/Past addictive behavior concerns? No Assessment & Plan Assessment & Plan (1) Binge-eating disorder, mild: Code(s): F50.81 - Binge eating disorder (2) S/P laparoscopic sleeve gastrectomy: Comment: DOS 01/13/20, Dr. Davis Code(s): Z98.84 - Bariatric surgery status (3) Obesity (BMI 30.0-34.9): Code(s): E66.9 - Obesity, unspecified Plan Patient reported struggling with overeating, emotional eating/binge eating due to person stressors. She is interested in group therapy and appropriate for that level of care. Telehealth Telehealth Location of provider rendering services: other Location of patient: other Patient Identification confirmed using: Name, : Yes Telehealth method: video Patient verbally consented to treatment: Yes Patient verbally consented to billing insurance company: Yes Patient informed of any privacy concerns related to visit: Yes Minutes spent on Phone/Video with Pt.: 35 Coding Level of Care Code Tele Psytx 30 mins (52892) Diagnoses Binge-eating disorder, mild F50.81 S/P laparoscopic sleeve gastrectomy Z98.84 Obesity (BMI 30.0-34.9) E66.9 Time Spent (min) 35
== END 2023-06-28 16:30 | disposition home or self-care (01) ==
LOC: HO.HBST 06-29 08:23
PROVIDERS: PCP Internal Medicine; Visit Provider Counselor Mental Health
DX: F50.81 Binge eating disorder (principal); Z98.84 Bariatric surgery status; E66.9 Obesity, unspecified
CPT/HCPCS: 90832

== ENCOUNTER → 2023-06-28 16:00 | Outpatient (BNVA) | payer OTHER, SELFPAY | PROVIDERS: PCP Internal Medicine; Visit Provider Counselor Mental Health | DX: F50.81 Binge eating disorder (principal); Z98.84 Bariatric surgery status; E66.9 Obesity, unspecified ==

== ENCOUNTER 2023-07-05 16:14 | Outpatient (AMB) | payer SELFPAY ==
--- NOTE | 2023-07-05 16:15 | A.OFFVIS_ITS ---
Intake Intake Visit Reasons: VIDEO PO LSG 01/13/20 Allergies No Known Allergies [No Known Allergies*] Allergy (Verified 05/14/23 15:34) NKA Allergy (Unknown, Uncoded 11/30/20 11:08) Unknown HPI Nutrition Presentation Details PO LSG with Dr. Davis 01/13/2020 Lowest weight (10/15/20) 121# BMI 22.8 Last appt was 10 months ago at 172# - then LTFU Did not ask pt for weight today , did not weigh in office. may address at follow up if appropriate pt reports she thinks her highest was 206, 198# Diet Assmnt Details Met with patient for 1st nutrition appointment month ago, she feels that she has been able to get back on truck was a healthy eating 8am celebrate rebuild 2 scoops in 8oz un sweetened soy milk (her preference for all products) 12pm protein bar 3pm shake dinner 3oz chicken, turkey, - she has a food scale ; doesn't always use reports increased alcohol She had a therapist, but her therapist left [facility] , so she just started with another one. she is not sure if its a good fit yet. Reviewing previous nutrition notes - pt had gone to [facility] for help with binge eating. reports several episodes of binge eating . At first she wasnt able to identify the reason for it. But then reports she realized the binge (and many in the past) due to feeling unsatisfied with her food. Usually physically satisfied, but not mentally Exercise: none now. Going to [employer] few times per week during the treadmill, she enjoys doing strength training machines as well Vitamin supplementation: Taking the celebrate one, calcium soft chews, and just started vitamin A supplementation (she had some leftover vitamin-A from last prescription) Dietary counseling reduction Diagnosis Nutrition problem #1 overweight/obesity As related to (etiology) #1 excess energy intake and physical inactivity As evidenced by (sign/symptom) #1 high BMI Monitoring/Goals Nutrition problem monitoring total energy intake, level of knowledge/skill, total PRO intake, total CHO intake, weight and oral fluids Outcome progress progressing Learning/Education Readiness to learn good Stages of change action Educational materials provided Yes (recipe book/resources, EE handout) Most Recent Diabetes Results: Cholesterol 205 mg/dL (<200) H 05/18/23 HDL Cholesterol 46 mg/dL (>40) 05/18/23 Triglycerides 100 mg/dL (<150) 05/18/23 Creatinine 0.68 mg/dL (0.5-1.4) 05/18/23 Blood Urea Nitrogen 12 mg/dL (9-16) 05/18/23 Sodium 140 mmol/L (135-145) 05/18/23 Potassium 4.6 mmol/L (3.3-5.1) 05/18/23 Chloride 106 mmol/L (96-108) 05/18/23 Carbon Dioxide 24 mmol/L (22-29) 05/18/23 Calcium 9.4 mg/dL (8.4-10.2) 05/18/23 [facility] Medical History Chronic constipation Intestinal malabsorption following gastrectomy BMI 25.0-25.9,adult Intestinal malabsorption Surgical History Hx of removal of ovary History of carpal tunnel surgery S/P laparoscopic sleeve gastrectomy Family History Father DM (diabetes mellitus) Mother HTN (hypertension) Arthritis Brother No problems noted. Sister No problems noted. 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 Telehealth Telehealth Location of provider rendering services: practice address Location of patient: address on file Patient Identification confirmed using: Name, : Yes Telehealth method: video Patient verbally consented to treatment: Yes Patient verbally consented to billing insurance company: Yes Patient informed of any privacy concerns related to visit: Yes Minutes spent on Phone/Video with Pt.: 45 Coding Level of Care Code Nutr Indiv Subseq (58840) Diagnoses Obesity (BMI 30-39.9) E66.9 Time Spent (min) 45
== END 2023-07-05 16:50 | disposition home or self-care (01) ==
LOC: HO.HBS 16:14
PROVIDERS: PCP Internal Medicine; Visit Provider Dietitian, Registered
DX: E66.9 Obesity, unspecified (principal)

== ENCOUNTER → 2023-07-05 16:14 | Outpatient (BNVA) | payer SELFPAY | PROVIDERS: PCP Internal Medicine; Visit Provider Dietitian, Registered | DX: E66.9 Obesity, unspecified (principal); Z98.84 Bariatric surgery status; Z71.3 Dietary counseling and surveillance | CPT/HCPCS: 97803 ==

== ENCOUNTER 2023-10-31 11:07 | Emergency (ER) | payer OTHER, SELFPAY ==
[2023-10-31 11:33] VITALS: BP 169/92; PULSE 71; RESP 20; TEMP 36.1; O2SAT 100; BMI 44.9
--- NOTE | 2023-10-31 11:33 | ED.GENADULT ---
HPI - General Adult General Chief complaint: Urogenital-Female Stated complaint: Tampon stuck Time Seen by Provider: 10/31/23 11:37 Source: patient Mode of arrival: ambulatory Limitations: no limitations History of Present Illness HPI narrative: Patient is a 43-year-old female presenting to the emergency department stating that she believes she inserted a tampon vaginally yesterday but does not believe she removed it. She attempted to remove the tampon but was unable to locate the string or remove it. She is unsure if it possibly may have fallen out. States that her periods started on Sunday and her current flow is light. She denies any fevers/chills/body aches. Denies any abnormal vaginal discharge. Denies any vaginal discomfort. Denies any nausea, vomiting. MD complaint: vaginal foreign body Onset (ago): hour(s) Location: genitals Associated symptoms: denies other symptoms Treatments prior to arrival: none Related Data Home Medications Medication Instructions Recorded Confirmed celebrate MVI PO DAILY 12/23/21 05/14/23 Allergies Allergy/AdvReac Type Severity Reaction Status Date / Time No Known Allergies Allergy Verified 05/14/23 15:34 [No Known Allergies*] NKA Allergy Unknown Unknown Uncoded 11/30/20 11:08 Review of Systems Review of Systems: As per HPI. Yes all other systems are reviewed and are negative Constitutional: Constitutional: Reports as per HPI [facility] Past Medical History Medical History Chronic constipation Intestinal malabsorption following gastrectomy BMI 25.0-25.9,adult Intestinal malabsorption Surgical History Hx of removal of ovary History of carpal tunnel surgery S/P laparoscopic sleeve gastrectomy Family History Family History Father DM (diabetes mellitus) Mother HTN (hypertension) Arthritis Brother No problems noted. Sister No problems noted. 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 Blood pressure elevated. Heart rate normal. Respiratory rate normal. Temperature normal. Oxygen saturation normal. Const General: cooperative, healthy appearing and no acute distress Orientation/consciousness: oriented to person, oriented to place, oriented to time and patient oriented x3 Limitations: no limitations HENMT Head: Yes normocephalic and Yes atraumatic Ears: external ears normal General nose exam: Normal external nose present Face and sinus: Yes face symmetric Mouth: oropharynx normal and moist mucous membranes Throat: Yes uvula midline Eyes Pupils: Equal, round and reactive pupils present Neck Neck: Yes normal visual inspection and Yes supple Resp Effort & Inspection: normal respiratory effort and able to speak in complete sentences Auscultation: clear to auscultation bilaterally Cardio Rate: regular rate Rhythm: regular rhythm Heart sounds: S1 normal heart sound present and S2 normal heart sound present GI Palpation (GI): Soft to palpation and nontender Auscultation: normoactive bowel sounds Other: Pelvic exam chaperoned by PARTH Cantu. General: Yes no CVA tenderness Speculum Exam - Vagina: normal appearance of the vagina, normal palpation, no foreign bodies and vaginal bleeding Speculum Exam - Cervix: normal appearance of the cervix Bimanual exam- vagina & uterus: normal palpation OB/external & speculum: vaginal bleeding; no foreign bodies Back/Spine/Pelvis Back: no CVA tenderness Skin General skin exam: elasticity normal and turgor normal Neuro General: oriented to person, oriented to place, oriented to time, patient oriented x3, moves all extremities, no focal motor deficits and CN's II-XI intact bilaterally Cranial nerves: Yes Equal, round and reactive pupils present Cognition (Neuro): normal cognition Extrem General: Yes full ROM, Yes no pedal edema and Yes no calf tenderness Psych Mental Status: mental status grossly normal Affect: normal affect Thought process: Normal thought process present Course Course Course Narrative: This is an RME: Additional HPI, ROS, PE not included below will be deferred to primary provider. This is a [id number], with no known medical history, presenting to the ER with a complaint of retained tampon. Pt states that she placed a tampon in on sunday night and is unsure if it is still in there. She states that she otherwise feels well. Still having some vaginal spotting. No abdominal pain, fevers, or chills. Plan: Further ER evaluation needed. Medical Decision Making Medical Decision Making [facility] Narrative: Patient is a 43-year-old female presenting to the emergency department stating that she believes she inserted a tampon vaginally yesterday but does not believe she removed it. On exam patient is awake, A+Ox3, BP elevated, VS otherwise WNL, afebrile, normal neurological exam without focal deficits, physical exam findings as above. Given reported symptoms and physical exam findings, initial differential includes vaginal foreign body, TSS. No evidence of TSS on physical exam, no foreign body noted on physical exam. Discussed with patient that the tampon likely fell out unnoticed. Strict return precautions discussed with patient at bedside. Patient verbalized understanding of and agreement with plan. Differential Diagnosis Differential Diagnoses: The differential diagnosis associated with the presentation includes As per MDM. External Record Review External record reviewed: Inpatient record, Office record and Outpatient record Discharge Plan Discharge Clinical Impression: Foreign body of vagina Patient Disposition: Home, Self-Care Instructions: Vaginal Foreign Body (ED) Additional Instructions: You were evaluated in the emergency department today with concern for a foreign body to your vagina. No foreign bodies were noted on your physical exam. Please follow-up with your hospital tray service worker for any ongoing concerns. Return to the emergency department if you develop fever, chills, body aches, foul-smelling discharge, abnormal vaginal discharge, nausea and vomiting or any other concerning symptoms. Prescriptions: No Action celebrate MVI PO DAILY
--- NOTE | 2023-10-31 12:17 | PC.NURSE ---
Charponed vaginal exam with VASCULAR TECH- nothing found in vaginal canal
[2023-10-31 13:16] VITALS: BP 169/92; PULSE 71; RESP 20; TEMP 36.1; O2SAT 100
== END 2023-10-31 13:17 | disposition home or self-care (01) ==
PROVIDERS: Emergency Provider Emergency Medicine; PCP Family Medicine
DX: T19.2XXA Foreign body in vulva and vagina, initial encounter (principal); W44.8XXA Other foreign body entering into or through a natural orifice, initial encounter
CPT/HCPCS: 99284

== ENCOUNTER 2025-01-26 14:20 | Outpatient (AMB) | payer OTHER, SELFPAY ==
--- NOTE | 2025-01-26 14:34 | MHC.OFFVISWM ---
VS Expanded 01/26/25 14:47 BP 144/79 H Blood Pressure Location Rt brachial Blood Pressure Position Sitting Pulse 83 Pulse Source Pulse Oximeter Temp 96.8 F Temperature Source Temporal Artery Scan Pulse Oximetry 96 Oxygen Delivery Method Room Air Height 5 ft Weight 227 lb 9.6 oz BMI 44.4 Body Fat % 44.8 Body Fat Mass 101.8 Fat Free Mass 125.6 Visceral Fat Rating 14.0 Body Water % 39.0 Body Water Mass 89.8 Muscle Mass/Score 119.2 Basal Metabolic Rate/Score 1,768 Intake Visit Reasons: (OV) PO LSG 01/13/20 *GLP-1* Fixed Wing Aircraft Flight Engineer Required: No Allergies No Known Allergies (No Known Allergies*) Allergy (Verified 01/26/25 14:42) NKA Allergy (Unknown, Uncoded 11/30/20 11:08) Unknown Medication List - Last Reconciled 01/26/25 by [place] Jade ergocalciferol (vitamin D2) 1,250 mcg PO QWEEK HPI Comments Details: Patient is a pleasant 45-year-old female who returns to the office today in follow-up. She is status post sleeve gastrectomy performed 01/13/2020. She is about 5 years postoperative. She was last seen by me 05/14/2023 with a weight of 201.6 and a BMI of 39.4. Weight today is 227.6 with a BMI of 44.4. meal plan: none exercise plan: has walking pad at home. [facility] Medical History Chronic constipation Intestinal malabsorption following gastrectomy BMI 25.0-25.9,adult Intestinal malabsorption Surgical History Hx of removal of ovary History of carpal tunnel surgery S/P laparoscopic sleeve gastrectomy Family History Father DM (diabetes mellitus) Mother HTN (hypertension) Arthritis Brother No problems noted. Sister No problems noted. 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 Physical Exam Vital Signs: Last Vital Signs Temp 96.8 F 01/26/25 14:47 Pulse 83 01/26/25 14:47 BP 144/79 H 01/26/25 14:47 Pulse Ox 96 01/26/25 14:47 Oxygen Delivery Method Room Air 01/26/25 14:47 BMI result Body Mass Index 44.4 Const General: cooperative and no acute distress Orientation/consciousness: patient oriented x3 Resp Effort & Inspection: normal respiratory effort Auscultation: clear to auscultation bilaterally Cardio Rate: regular rate Rhythm: regular rhythm GI Inspection: Yes normal to inspection Palpation (GI): Soft to palpation and no masses Neuro General: patient oriented x3 Assessment & Plan Assessment & Plan (1) S/P laparoscopic sleeve gastrectomy: Comment: DOS 01/13/20, Dr. Davis Code(s): Z98.84 - Bariatric surgery status Category: Surgical Plan: Patient returning to the office after several years of being away. She had lost her insurance and has now gotten a new job where she has insurance again. We will check labs and she was given information regarding right BMI nico. encouraged to join the gym with a goal of burning 300 calories per day. We will have her return to the office in approximately 1 month. Additionally, encouraged to take multivitamin daily. She was started on vitamin-D through her primary care Orders: Orders Insulin Today E50.9 - Vitamin A deficiency, unspecified, Z98.84 - Bariatric surgery status Complete Blood Count Auto Diff Today E50.9 - Vitamin A deficiency, unspecified, Z98.84 - Bariatric surgery status Comprehensive Met. Panel Today E50.9 - Vitamin A deficiency, unspecified, Z98.84 - Bariatric surgery status Vitamin A Today E50.9 - Vitamin A deficiency, unspecified, Z98.84 - Bariatric surgery status TSH reflex Free T4 Today E50.9 - Vitamin A deficiency, unspecified, Z98.84 - Bariatric surgery status Vitamin D 25-OH Total Today E50.9 - Vitamin A deficiency, unspecified, Z98.84 - Bariatric surgery status Hemoglobin A1c Today E50.9 - Vitamin A deficiency, unspecified, Z98.84 - Bariatric surgery status Lipid Panel Today E50.9 - Vitamin A deficiency, unspecified, Z98.84 - Bariatric surgery status IRON PROFILE Today E50.9 - Vitamin A deficiency, unspecified, Z98.84 - Bariatric surgery status Vitamin B12 and Folate Today E50.9 - Vitamin A deficiency, unspecified, Z98.84 - Bariatric surgery status Zinc Today E50.9 - Vitamin A deficiency, unspecified, Z98.84 - Bariatric surgery status C Reactive Protein Today E50.9 - Vitamin A deficiency, unspecified, Z98.84 - Bariatric surgery status Vitamin B1 Today E50.9 - Vitamin A deficiency, unspecified, Z98.84 - Bariatric surgery status Ferritin Today E50.9 - Vitamin A deficiency, unspecified, Z98.84 - Bariatric surgery status
[2025-01-26 14:47] VITALS: BP 144/79; PULSE 83; TEMP 36; O2SAT 96; BMI 44.4
--- OUTSIDE RECORDS SUMMARY | 2025-01-26 14:49 | XMS_ITS | Encounter Summary ---
Author Organization [employer] Address [address] [place] [address] [address] [place] [address] Care Team Providers Care Fiberglass Quality Technician Name Role Phone Unavailable Primary Care Provider Unavailabl e Encounter Details Date Type Department Care Team (Latest Contact Info) Description 09/11/2019 Abstract [facility] CONVERSIONS Dental, Provider, DDS Social History Tobacco Use Types Packs/Day Years Used Date Smoking Tobacco: Never Assessed Comments Unknown Sex and Gender Information Value Date Recorded Sex Assigned at Female 05/29/2022 10:22 AM EDT Legal Sex Female 10:22 AM EDT Gender Identity Female 05/29/2022 10:22 AM EDT Sexual Orientation Straight 05/29/2022 10 :22 AM EDT documented as of this encounter Plan of Treatment Upcoming Encounters Date Type Department Care Team (Late st Contact Info) Description 06/22/2025 3:00 PM EST Office Visit [facility] [address] [place] [address] Mary [address] [place] [address] documented as of this encounter Visit Diagnoses Not on filedocumented in this encounter
== END 2025-01-26 15:11 | disposition home or self-care (01) ==
LOC: HO.HBS 14:20
PROVIDERS: PCP Family Medicine; Visit Provider Physician Assistant Surgical
DX: E66.813 Obesity, class 3 (principal); Z68.41 Body mass index [BMI] 40.0-44.9, adult; Z90.3 Acquired absence of stomach [part of]; Z98.84 Bariatric surgery status
CPT/HCPCS: 99213; G2211

== ENCOUNTER 2025-02-05 06:04 | Outpatient (REF) | payer OTHER, SELFPAY ==
--- OUTSIDE RECORDS SUMMARY | 2025-02-02 16:00 | XMS_ITS | Encounter Summary ---
Author Organization [employer] Address [address] [place] [address] Care Team Providers Care Sodder Name Role Phone Marisol Arteaga MD Primary Care Pr ovider Reason for Visit * Consultation (Routine) - Authorized Specialty Diagnoses / Procedures Referred By Zena callahan Referred To Contact Occupational Therapy Diagnoses Pain of both elbows Wood Rodrigues PA [address] [place] [address] Phone: tel: fax: Referral ID Status Reason Start Date Expiration Date Visits Requested Visits Authorized [id number] Authorized Specialty Services Required 01/12/2025 01/12/2026 25 25 Encounter Details Date Type Department Care Team (Late st Contact Info) Description 02/02/2025 4:00 PM EDT Treatment [facility] [address] [place] [phone] Anil Vasquez, OT Pain of both elbows [...] care for your loved ones. For example, attendant children's institution or elderly care for an older adult? [...] Vasquez OT - 02/02/2025 4:00 PM EDT [facility] - Outpatient OCCUPATIONAL THERAPY DAILY TREATMENT NOTE Date: 02/02/2025 Visit Number: 2 Patient Name: Elizabeth Nance : 1980 Age: 45 y.o. Gender: female Diagnosis: ICD-10-CM ICD-9-CM 1. Pain of both elbows M25.521 719.42 M25.522 Date of Onset: 01/12/2025 Referring Provider: Wood Rodrigues PA Insurance: Payor: [employer] / Plan: [employer] / Product Type: *No Product type* / Patient identified by: Anil Vasquez OT Language: Speaks and understands Sami as preferred language with no batter mixer required Allergies: has No Known Allergies. Precautions: [...] Info) Description 02/09/2025 10:00 AM EDT Treatment [facility] Occupational Therapy [address] [place] [phone] Anil Vasquez OT 02/11/2025 4:00 PM EDT Treatment [facility] [address] [phone] Lela Murry, OT 02/18/2025 10:15 AM EDT Treatment [facility] [address] [phone] Tamera Rascon COTA/Ammy 02/23/2025 10:00 AM EDT Treatment [facility] [address] [phone] Anil Vasquez, OT 02/25/2025 4:00 PM EDT Treatment [facility] [address] [phone] Lela Murry, OT 03/02/2025 8:45 AM EDT Consult Orthopedic Surgery - [place] [address] [phone] Daniel Abad, DPM [address] [address] 03/17/2025 3:15 PM EDT Office Visit Orthopedic[address] [phone] Wood Rodrigues PA [address] [place] [address] 12/25/2025 3:00 PM EDT Office Visit Adult Medicine [address] [phone] Marisol Arteaga MD [address] [place] [address] documented as of this encounter Goals Goal [...] documented as of this encounter Care Teams Sodder Relationship Specialty Start Date End Date Marisol Arteaga MD [address] [place] [phone] PCP - General 01/16/23 documented as of this encounter
--- OUTSIDE RECORDS SUMMARY | 2025-02-05 06:06 | XMS_ITS | Encounter Summary ---
Author Organization [employer] Address [address] [place] [address] [address] [place] [address] Care Team Providers Care Spool Sander Name Role Phone Unavailable Primary Care Provider Unavailabl e Encounter Details Date Type Department Care Team (Latest Contact Info) Description 09/11/2019 Abstract [facility] CONVERSIONS Dental, Provider, DDS Social History [...] Description 06/22/2025 3:00 PM EST Office Visit [facility]ULT [facility] [address] [place] [address] Mary [address] [place] [address] documented as of this encounter Visit Diagnoses Not on filedocumented in this encounter
[2025-02-05 06:17] LABS: MANUAL DIFF FLAG NO
[2025-02-05 07:41] LABS: Hematocrit 42.7 % (37.0-47.0); Hemoglobin 14.2 g/dl (12.0-16.0); Imm Gran Abs Auto 0.04 X10*3/uL (0.00-0.03); Imm Gran Pct Auto 0.6 % (0.0-0.4); Lymphocytes Absolute Auto 2.1 X10*3/uL (1.2-4.9); Mean Corpuscular HGB Conc 33.3 g/dl (31.0-35.0); Mean Corpuscular Hemoglobin 29.5 pg (27.0-33.0); Mean Corpuscular Volume 88.8 fL (80.0-98.0); NRBC Abs Auto 0.000 X10*3/uL (0.0-0.012); NRBC Pct Auto 0.0 /100WBC (0.0-0.2); Platelet Count 219 X10*3/uL (160-400); Red Blood Count 4.81 X10*6/uL (4.20-5.50); White Blood Count 7.0 X10*3/uL (4.8-10.8)
[2025-02-05 07:47] LABS: Hemoglobin A1C 132.6654 umol/L; Total Hemoglobin (HGBA1C) 3750.2986 umol/L
[2025-02-05 08:19] LABS: Alanine Aminotransferase 35 U/L (0-31); Albumin Level 4.1 g/dL (3.5-5.0); Alkaline Phosphatase 73 U/L (39-117); Anion Gap 9 (12-20); Aspartate Amino Transferase 30 U/L (5-31); Blood Urea Nitrogen 13 mg/dL (9-16); Calcium 8.8 mg/dL (8.4-10.2); Carbon Dioxide 26 mmol/L (22-29); Chloride 106 mmol/L (96-108); Cholesterol 245 mg/dL (<200); Estimated Glomerular Filt Rate > 60; HDL Cholesterol 45 mg/dL (>40); Iron 91 mcg/dL (30-160); Percent Iron Saturation 27 % (15-50); Potassium 4.4 mmol/L (3.3-5.1); Sodium 137 mmol/L (135-145); Total Iron Binding Capacity 339 mcg/dL (228-428); Total Protein 6.6 g/dL (6.5-8.0); Triglycerides 186 mg/dL (<150); Unsaturated Iron Binding 248 ug/dL
[2025-02-05 08:37] LABS: Ferritin 19 ng/mL (10-250)
[2025-02-05 08:45] LABS: Folate 3.6 ng/mL (> or = 4.0); Vitamin B12 395 pg/mL (200-900)
== END 2025-02-05 06:05 | disposition home or self-care (01) ==
LOC: HO.LAB 06:04
PROVIDERS: PCP Family Medicine; Visit Provider Physician Assistant Surgical
DX: Z98.84 Bariatric surgery status (principal); E50.9 Vitamin A deficiency, unspecified
CPT/HCPCS: 36415; 80053; 80061; 82306; 82607; 82728; 82746; 83036; 83525; 83540; 84425; 84443; 84590; 84630; 85025; 86140

== ENCOUNTER 2025-02-06 06:42 | Emergency (ER) | payer OTHER, SELFPAY ==
--- OUTSIDE RECORDS SUMMARY | 2025-02-02 16:00 | XMS_ITS | Encounter Summary ---
Author Organization [employer] Address [address] [place] [address] Care Team Providers Care Weathercaster Name Role Phone Marisol Arteaga MD Primary Care Pr ovider Reason for Visit * Consultation (Routine) - Authorized Specialty Diagnoses / Procedures Referred By Zena callahan Referred To Contact Occupational Therapy Diagnoses Pain of both elbows Wood Rodrigues PA [address] [place] [address] Phone: tel: fax: Referral ID Status Reason Start Date Expiration Date Visits Requested Visits Authorized [id number] Authorized Specialty Services Required 01/12/2025 01/12/2026 25 25 Encounter Details Date Type Department Care Team (Late st Contact Info) Description 02/02/2025 4:00 PM EDT Treatment [facility] [address] [place] [phone] Anil Vasquez, OT Pain of both elbows (Primary Dx) Social History Tobacco Use Types Packs/Day Years Used Date Smoking Tobacco: Never Smokeless Tobacco: Never Alcohol Use Standard Drinks/Week Comments Yes 0 (1 standard drink = 0.6 oz pur e alcohol) Housing Instability Answer Date Recorde d Are you worried that in the next 2 months you may not have stable housing? No 12/18/2024 Food Access & Nutrition Answer Date Rec orded Do you have access to a vari ety of food including fruits and vegetables? Yes 12/18/2024 Access to Healthcare Answer Date Record ed Within the last 3 months, ho w many times did you visit the emergency department for your medical care? 0 07/19/2024 Health Literacy Answer Date Recorded How often do you need to hav e someone help you when you read instructions, pamphlets, or other written material from your doctor or pharmacy? Never 12/18/2024 Caregiver: How often do you need to have someone help you when you read instructions, pamphlets, or other written material from your doctor or pharmacy? Not on file 12/18/2024 Financial Risk Answer Date Recorded How hard is it for you to pa y for the very basics like food, housing, medical care, and air conditioning / heating? Somewhat hard 12/18/2024 Transportation Answer Date Recorded Has the lack of transportati on kept you from meetings, work, or from getting things needed for daily living? No Has the lack of transportati on kept you from medical appointments or from getting medications? No 12/18/2024 Social Isolation Answer Date Recorded How often do you feel lonely or isolated from those around you? Sometimes 12/18/2024 Food Risk Answer Date Recorded Within the past 12 months we worried whether our food would run out before we got money to buy more. Never true 12/18/2024 Within the past 12 months th e food we bought just didn't last and we didn't have money to get more. Never true 12/18/2024 Dependent Care Answer Date Recorded Do you need help finding or paying for care for your loved ones. For example, director child abuse therapy or elderly care for an older adult? No 12/18/2024 Education Answer Date Recorded Do you think completing more education or training, like finishing a GED, going to college, or learning a trade, would be helpful for you? No 12/18/2024 Employment and Income Answer Date Recor ded During the last four weeks, have you been actively looking for work? No 12/18/2024 Living Situation Answer Date Recorded What is your living situation? 0 12/18/2024 Comments Unknown Sex and Gender Information Value Date Recorded Sex Assigned at Female 07/19/2024 11:33 AM EST Legal Sex Female 12:23 AM EST Gender Identity Female 07/19/2024 11:33 AM EST Sexual Orientation Not on file documented as of this encounter Progress Notes * Anil Vasquez OT - 02/02/2025 4:00 PM EDT [facility] - Outpatient OCCUPATIONAL THERAPY DAILY TREATMENT NOTE Date: 02/02/2025 Visit Number: 2 Patient Name: Elizabeth Nance : 1980 Age: 45 y.o. Gender: female Diagnosis: ICD-10-CM ICD-9-CM 1. 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 Precautions: None specified SUBJECTIVE Subjective Report: My elbows are feeling better Pain: No pain OBJECTIVE Pt able to manage personal items MOD I TREATMENT INTERVENTION Procedures: U/S To R lateral elbow 3.3 MHz, 0.8 W/CM2, 50% pulsed X 8 min followed by L lateral elbow 3.3 MHz, 0.8 W/CM2, 50% pulsed X 8 min to decrease inflammation There ex: Gentle soft tissue mobility Blanca stretch B elbow 30 sec X 2 B wrist sup/pron, flex/ext 1# slow stretch for eccentric contraction 5 reps each Issued both for HEP Pain Reassessment: no pain Assessment/Response To Treatment: Good No pain Patient Education: Education provided: Yes Education Provided To: Patient utilizing Explanation and Demonstration mode(s) of education Response to Education: Good PLAN POC Development/Review: No Change in the Plan of Care; Participants: Patient Total Treatment Time: 45 Documentation completed by Anil Vasquez OT documented in this encounter Plan of Treatment Upcoming Encounters Date Type Department Care Team (Late st Contact Info) Description 02/09/2025 10:00 AM EDT Treatment [facility] Occupational Therapy [address] [place] [phone] Anil Vasquez OT 02/11/2025 4:00 PM EDT Treatment [facility] [address] [phone] Leal Murry, OT 02/18/2025 10:15 AM EDT Treatment [facility] [address] [phone] Tamera Rascon COTA/Ammy 02/23/2025 10:00 AM EDT Treatment [facility] [address] [phone] Anil Vasquez, OT 02/25/2025 4:00 PM EDT [facility] [address] [phone] Lela Murry, OT 03/02/2025 8:45 AM EDT Consult Orthopedic Surgery - [place] [address] [phone] Daniel Abad, DPM [address] [address] 03/17/2025 3:15 PM EDT Office Visit Orthopedic[address] [phone] Wood Rodrigues PA [address] [place] [address] 12/25/2025 3:00 PM EDT Office Visit Adult Medicine [address] [phone] Marisol Arteaga MD [address] [place] [address] documented as of this encounter Goals Goal Patient Goal Type Associated Problems Recent Progress Patient-Stated? Author Pt goals General Yes Anil Vasquez, OT Note: To be able to use my arms without pain in my elbows STG 4-6 visits General No Anil Vasquez, OT Note: Patient will report <=6/10 pain in R elbow, Patient will report <=4/10 pain in L elbow, Patient will demo R supination, L supination/pronation strength improved by 1/2 muscle grade to be able to mop, and Patient will perform initial HEP MOD I LTG 12 visits General Anil Astudillo, OT Note: Patient will report <=3/10 pain in R elbow, Patient will report <=2/10 pain in L elbow, Patient will demo B forearm strength WFL for work tasks, Patient will demo improved functional use of B upper extremity as evidenced by Quick Dash score <= 30 to be able to perform work tasks with minimal pain, and Patient will perform HEP MOD I documented as of this encounter Visit Diagnoses Diagnosis Pain of both elbows- Primary documented in this encounter Additional Health Concerns Assessment Noted Time PHQ-9 Depression Total Score: 13 12/18/ 025 12:15 PM EDT documented as of this encounter Care Teams Weathercaster Relationship Specialty Start Date End Date Marisol Arteaga MD [address] [place] [phone] PCP - General 01/16/23 documented as of this encounter
--- NOTE | ~2025-02-06 | XR_ITS ---
EXAMINATION: XR SHOULDER, LEFT CLINICAL INFORMATION: pain COMPARISON: None available. TECHNIQUE: AP external rotation, Grashey, scapular Y, and axillary views of the left shoulder. FINDINGS: No acute cortical disruption or malalignment. Calcification at the supraspinatus tendon insertion. 5 mm sclerotic lesion, humeral head. No subchondral cyst formation along the articular surfaces of the acromioclavicular joint or the glenoid fossa. XR/XR shoulder LT min 2V IMPRESSION: Calcific tendinosis/tendinopathy, supraspinatus. Probable bony island, left humeral head. Electronically signed by: Wong Blake MD 02/06/2025 07:56 AM EDT
[2025-02-06 06:52] VITALS: BP 93/49; PULSE 89; RESP 16; TEMP 37.1; O2SAT 98; BMI 44.1
--- NOTE | 2025-02-06 07:04 | ED_ITS ---
HPI - Extremity Problem General Chief complaint: Extremity Injury, Upper Stated complaint: left arm loss of mobility Time Seen by Provider: 02/06/25 07:03 Source: patient and old records reviewed Mode of arrival: ambulatory Limitations: no limitations History of Present Illness ED Provider: RITESH BUSH Narrative: 45 yo female with PMH of obesity s/p lap gastric sleeve she is R hand dominant she reports L shoulder pain since Sunday. She denies known trauma. It hurts on the anterior top of the bicep when she moves. She cannot do some activities due to the pain. NO recent tick bites, rash. This has never happened to her before. MD Complaint: joint pain Onset (ago): day(s) (5) Pain Consistency: constant Location: left and upper extremity Quality: aching and constant Radiation: distal Relieving factors: immobilization Exacerbating factors: range of motion and palpation Associated symptoms: denies other symptoms Related Data Home Medications ?Medication ?Instructions ?Recorded ?Confirmed ergocalciferol (vitamin D2) 1,250 1,250 mcg PO QWEEK 0 01/26/25 01/26/25 mcg (50,000 unit) capsule Previous Rx's ?Medication ?Instructions ?Recorded cyclobenzaprine 10 mg tablet 10 mg PO TID PRN muscle s pasm #20 02/06/25 tabs prednisone 20 mg tablet 20 mg PO DAILY 3 days #3 tab s 02/06/25 Allergies Allergy/AdvReac Type Severity Reaction Status Date / Time No Known Allergies (No Known Allergy Verified 02/06/25 06:53 Allergies*) NKA Allergy Unknown Unknown Uncoded 02/06/25 06:53 Review of Systems Review of Systems: Constitutional : No Fever, No Chills Cardiovascular : No Chest Pain, No SOB Respiratory : No Cough, No Dyspnea Gastrointestinal : No Nausea, No Vomiting Musculoskeletal : positive joint pain, No Myalgias, No Joint Swelling Skin : No Skin lacerations, No rash Neuro : No Weakness, No Numbness All other systems reviewed and are negative [facility] Past Medical History Attestation statement: The following information was validated with the patient. Source: old records reviewed Medical History Chronic constipation Intestinal malabsorption following gastrectomy BMI 25.0-25.9,adult Intestinal malabsorption Surgical History Hx of removal of ovary History of carpal tunnel surgery S/P laparoscopic sleeve gastrectomy Family History Family History Father DM (diabetes mellitus) Mother HTN (hypertension) Arthritis Brother No problems noted. Sister No problems noted. 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 Oriented X3. No acute distress. Eyes: Pupils equal, round and reactive to light. ENT: Pharynx normal. Neck: Normal inspection. Neck supple. CVS: Normal heart rate and rhythm. Pulses normal. Respiratory: No respiratory distress. Breath sounds normal. Abdomen: Soft and nontender. Skin: Skin warm and dry. Normal skin color. Normal skin turgor. Extremities: No lower extremity edema. L shoulder ttp along proximal biceps tendon, distal NV intact, can perform abduction/adduction tests cannot reach behind her back Neuro: Oriented X 3. No motor deficit. No sensory deficit. CN2-12 intact Medical Decision Making Differential Diagnosis Differential Diagnoses: The differential diagnosis associated with the presentation includes tendonitis, rotator cuff injury Independent Interpretation I performed an independent interpretation of an: Plain X-Ray (normal ) Radiology Impression Discussion of test interpretation with radiology: I have reviewed the radiologist's reading. External Record Review External record reviewed: Outpatient record Prescription Management I considered prescription management with: Pain Medication and Other Procedures Orthopedic Splinting/Casting Injury #1: Side: left Upper Extremity Injury Location: shoulder Upper Extremity Immobilizer: sling/shoulder immobilizer Additional Comments: NV intact Discharge Plan Discharge Clinical Impression: Biceps tendinitis Qualifiers: Laterality: left Qualified Code(s): M75.22 - Bicipital tendinitis, left shoulder Patient Disposition: Home, Self-Care Instructions: Tendinitis (ED) Additional Instructions: okay to wear sling but only for 3 days please follow up with your doctor if not better take all medications with food return for any worsening symptoms or concerns okay to move arm as long as there is no significant pain should do gentle circles with wrist and elbow FINDINGS: No acute cortical disruption or malalignment. Calcification at the supraspinatus tendon insertion. 5 mm sclerotic lesion, humeral head. No subchondral cyst formation along the articular surfaces of the acromioclavicular joint or the glenoid fossa. XR/XR shoulder LT min 2V IMPRESSION: Calcific tendinosis/tendinopathy, supraspinatus. Probable bony island, left humeral head. Prescriptions: New cyclobenzaprine 10 mg tablet 10 mg PO TID PRN (Reason: muscle spasm) Qty: 20 0RF prednisone 20 mg tablet 20 mg PO DAILY 3 Days Qty: 3 0RF No Action ergocalciferol (vitamin D2) 1,250 mcg (50,000 unit) capsule 1,250 mcg PO QWEEK Stand Alone Forms: Work/School Release Print Language: Slovenian
[2025-02-06 07:27] VITALS: BP 125/69; PULSE 81; RESP 16; TEMP 36.9; O2SAT 98
--- OUTSIDE RECORDS SUMMARY | 2025-02-06 07:40 | XMS_ITS | Encounter Summary ---
Author Organization [employer] Address [address] [place] [address] [address] [place] [address] Care Team Providers Care Physical Therapy Manager Name Role Phone Unavailable Primary Care Provider Unavailabl e Encounter Details Date Type Department Care Team (Latest Contact Info) Description 09/11/2019 Abstract [facility] CONVERSIONS Dental, Provider, DDS Social History [...] Description 06/22/2025 3:00 PM EST Office Visit [facility]ULT D[facility] [address] [place] [address] [address] [place] [address] documented as of this encounter Visit Diagnoses Not on filedocumented in this encounter
--- OUTSIDE RECORDS SUMMARY | 2025-02-06 07:40 | XMS_ITS | Encounter Summary ---
Author Organization [facility] Address [address] [place] [address] Care Team Providers Care Managing Attorney Name Role Phone Marisol Arteaga MD Primary Care Provider + Reason for Visit * Reason Onset Date Comments REFERRAL 01/26/2023 Encounter Details Date Type Department Care Team Description 01/26/2023 Telephone Adult Medicine [facility] [address] [place] [phone] Marisol Arteaga MD [address] [place], [place] [phone] REFERRAL Social History Tobacco Use Types Packs/Day Years Used Date Smoking Tobacco: Never Smokeless Tobacco: Never Alcohol Use Standard Drinks/Week Comments No 0 (1 standard drink = 0.6 oz pur e alcohol) Sex Assigned at Date Recorded Not on file Job Start Date Occupation Industry Not on file Not on file Not on file COVID-19 Exposure Response Date Recorded In the last 10 days, have yo u been in contact with someone who was confirmed or suspected to have Coronavirus/COVID-19? No / Unsure 01/02/2023 1:49 PM EDT documented as of this encounter Miscellaneous Notes * Telephone Encounter - Rohini Hutson - 01/26/2023 10:21 AM EDT What insurance does the patient have today? Payor: [facility] / Plan: O $30 [place] 1500 / Product Type: HMO [id number] Effective 04/29/09: BCBS will not retro referral requests over 90 days. If request is for this please instruct patient to call the 800# on their insurance card to appeal. Do not submit a request. Referrals cannot be processed if the insurance is not accurate. If the insurance listed above in red is NO BILLING INFORMATION FOUND FOR THIS ENCOUTNER The patients correct insurance must be obtained and registered in [facility] or their referral can not be processed. Is this a retro request? NO. If yes for what date of service do you need the retro referral? N/A Who is calling to request this referral? Patient If the caller is not the patient, what is their name? N/A Ask the patient WHO referred them to this specialty: Patient self referred FIRST and LAST NAME of SPECIALIST PATIENT is seeing: Reynaldo Stewart What specialty is this? Dermatology DIAGNOSIS Patient is being seen for (Not a body part or a procedure): skin tag removal, chronic issues with hair loss Have you seen this SPECIALIST for this PROBLEM/DX before?YES If YES, when: Have you checked REVIEW or the APPT DESK to see if this referral has already been done or has visits left? YES Is this visit:Initial Visit Address of Specialist: [address] [place] [phone] Phone # of Specialist: Fax #: (if applicable): Does patient have an appointment scheduled?: NO Date of appointment- (including a retro-request): Is this appointment related to: Not MVA, WC or Surgery related documented in this encounter Plan of Treatment Not on file documented as of this encounter Visit Diagnoses Not on filedocumented in this encounter Care Teams Managing Attorney Relationship Specialty Start Date End Date Marisol Arteaga MD [address] [place] [phone] PCP - General Internal Medicine 01/16/23 documented as of this encounter
--- NOTE | 2025-02-06 08:01 | PC.NURSE ---
Ptient A&O x 3 patient presents to ED c/o left shoulder pain rted 10/10 non radiating. +CMS limited ROM. Pain began on Sunday and slowly go worse. PMH tennis elbow in left arm. Patient tried ibuprofen at home little to no effect. VSS and up to date. Provider in to see patient. Xray revealed tendonitis. Plan of care on going
[2025-02-06 08:04] VITALS: BP 125/69; PULSE 81; RESP 16; TEMP 36.9; O2SAT 98
--- NOTE | 2025-02-06 08:17 | PC.NURSE ---
Sling applied to LUE. Patient tolerated well.
== END 2025-02-06 08:17 | disposition home or self-care (01) ==
PROVIDERS: Emergency Provider Emergency Medicine; PCP Family Medicine
DX: M75.22 Bicipital tendinitis, left shoulder (principal); M25.512 Pain in left shoulder
CPT/HCPCS: 73030; 99283; 99284

== ENCOUNTER → 2025-02-06 07:18 | Outpatient (BNV) | payer OTHER, SELFPAY | PROVIDERS: Emergency Provider Emergency Medicine; PCP Family Medicine; Visit Provider Radiology Diagnostic Radiology | DX: M75.32 Calcific tendinitis of left shoulder (principal) | CPT/HCPCS: 73030 ==

== ENCOUNTER 2025-03-12 14:02 | Outpatient (AMB) | payer OTHER, SELFPAY ==
--- OUTSIDE RECORDS SUMMARY | 2025-03-09 10:30 | XMS_ITS | Encounter Summary ---
Author Organization [facility] Address [address] [place] [address] Care Team Providers Care Field Service Representative Name Role Phone Marisol Arteaga MD Primary Care Pr ovider Reason for Visit * Consultation (Routine) - Authorized Specialty Diagnoses / Procedures Referred By Zena callahan Referred To Contact Occupational Therapy Diagnoses Pain of both elbows Wood Rodrigues PA [address] [place] [address] Phone: tel: fax: Referral ID Status Reason Start Date Expiration Date Visits Requested Visits Authorized [id number] Authorized Specialty Services Required 01/12/2025 01/12/2026 25 25 Encounter Details Date Type Department Care Team (Late st Contact Info) Description 03/09/2025 10:30 AM EDT Treatment [facility] [address] [place] [phone] Anil Vasquez, OT Pain of both elbows (Primary Dx); Rotator cuff tendinitis, left Social History Tobacco Use Types Packs/Day Years [...] care for your loved ones. For example, residential child care counselor or elderly care for an older adult? [...] is your living situation? 0 12/18/2024 Comments No Sex and Gender Information Value Date Recorded Sex Assigned at Female 07/19/2024 11:33 AM EST Legal Sex Female 12:23 AM EST Gender Identity Female 07/19/2024 11:33 AM EST Sexual Orientation Choose not to disclose 2024 12:05 PM EDT documented as of this encounter Progress Notes * Anil Vasquez OT - 03/09/2025 10:30 AM EDT [facility] - Outpatient OCCUPATIONAL THERAPY DAILY TREATMENT NOTE Date: 03/09/2025 Visit Number: [id number] Patient Name: Elizabeth Nance : 1980 Age: 45 y.o. Gender: female Diagnosis: ICD-10-CM ICD-9-CM 1. Pain of both elbows M25.521 719.42 M25.522 2. Rotator cuff tendinitis, left M75.82 726.10 Date of Onset: 01/12/2025 Referring Provider: Wood Rodrigues PA Insurance: Payor: [employer] / Plan: [employer] / Product Type: *No Product type* / Patient identified by: Anil Vasquez OT Language: Speaks and understands Yoruba as preferred language with no beeswax bleacher required Allergies: has No Known Allergies. Precautions: None specified SUBJECTIVE Subjective Report: I reached in a certain way and that really hurt 8/10 ( L sh) Pain: B elbows 0/10 L sh 5/10 OBJECTIVE Pt able to manage personal items MOD I TREATMENT INTERVENTION Procedures: There ex: In supine, pt did serratus punch, circumduction CW CCW and tricep ext 3X10 each. - 1# In sitting, Blanca stretch B elbow 30 sec X 2 B wrist sup/pron, flex/ext 1# slow stretch for eccentric contraction 10 reps each [place]land theraband for L sh IR/ER/flex/ext 10 reps Issued for HEP No pain with therex Pain Reassessment: L sh 4/10 Assessment/Response To Treatment: Good Decreased pain Patient Education: Education provided: Yes Education Provided To: Patient utilizing Explanation and Demonstration mode(s) of education Response to Education: Good PLAN POC Development/Review: No Change in the Plan of Care; Participants: Patient Total Treatment Time: 45 Documentation completed by Anil Vasquez OT documented in this encounter Plan of Treatment Upcoming Encounters Date Type Department Care Team (Late st Contact Info) Description 03/16/2025 4:00 PM EDT Treatment [facility] Occupational Therapy [address] [phone] Anil Vasquez, OT 03/17/2025 3:15 PM EDT Office Visit Orthopedic[address] [phone] Wood Rodrigues PA [address] [place] [address] 03/18/2025 10:30 AM EDT Treatment [facility] Occupational Therapy [address] [place] [phone] Anil Vasquez, OT 05/04/2025 10:15 AM EDT Consult Orthopedic Surgery - [place] [address] [phone] Daniel Abad DPM [address] [address] 12/25/2025 3:00 PM EDT Office Visit Adult Medicine [address] [phone] Marisol Arteaga MD [address] [place] [phone] documented as of this encounter Goals Goal Patient Goal Type Associated Problems Recent Progress Patient-Stated? Author Pt goals General Yes Anil Vasquez, OT Note: To be able to use my arms without pain in my elbows STG 4-6 visits General On track( 025 4:55 PM EDT) No Anil Vasquez, OT Note: Patient will report <=6/10 pain in R elbow, - Met Patient will report <=4/10 pain in L elbow, - Met Patient will demo R supination, L supination/pronation strength improved by 1/2 muscle grade to be able to mop - Met Patient will perform initial HEP MOD I -Met Pt will demo at least 10 increase in L shoulder ROM to be able to don an overhead shirt comfortably - Met 03/04/25 Patient will report <=2/10 pain in B elbow with activity Patient will report <=4/10 pain in L sh with activity Patient will perform upgraded HEP MOD I Patient will demo improved functional use of B upper extremity as evidenced by Quick Dash score <= 12 to be able to perform light home mgmnt LTG 12 visits General On track( 025 4:52 PM EDT) Anil Astudillo, OT Note: Patient will report [...] and Patient will perform HEP MOD I Pt will report less than or equal to 2 pain in L shoulder with overhead reaching. Pt will demo WFL ROM in L shoulder to be able to complete overhead self care such as hair styling documented as of this encounter Visit Diagnoses Diagnosis Pain of both elbows- Primary Rotator cuff tendinitis, left documented in this encounter Additional Health Concerns Assessment Noted Time PHQ-9 Depression Total Score: 13 025 12:15 PM EDT documented as of this encounter Care Teams Field Service Representative Relationship Specialty Start Date End Date Marisol Arteaga MD [address] [place] [phone] PCP - General Internal Medicine 02/11/25 documented as of this encounter
[2025-03-12 13:59] VITALS: BMI 43.9
--- NOTE | 2025-03-12 13:59 | A.OFFVIS_ITS ---
VS Expanded 03/12/25 13:59 Height 5 ft Weight 225 lb BMI 43.9 Intake Visit Reasons: (TV) PO LSG 01/13/20 *GLP-1* [employer] Radio Operator Required: No Allergies No Known Allergies (No Known Allergies*) Allergy (Verified 02/06/25 06:53) NKA Allergy (Unknown, Uncoded 02/06/25 06:53) Unknown Medication List - Last Reconciled 03/12/25 by [place] Jade cyclobenzaprine 10 mg PO TID PRN ergocalciferol (vitamin D2) 1,250 mcg PO QWEEK prednisone 20 mg PO DAILY 3 days thiamine HCl (vitamin B1) 100 mg PO DAILY HPI Comments Details: Patient is a pleasant 45-year-old female who returns to the office today in follow-up. She is status post sleeve gastrectomy performed 01/13/2020. She is about 5 years 2 months postoperative. She was last seen by me 05/14/2023 with a weight of 201.6 and a BMI of 39.4. She was then seen in the office on 01/26/25 with a weight of 227.6 with a BMI of 44.4. Weight today is 225 lb with a BMI of 43.9. She states she has been unable to go to the gym due to foot problems. She has the right BMI but has not followed the plan, especially in the scond half of the day Meal plan: celebrate 4 in 1, 1/2 scoop in 8 oz soy milk at 5-7 another shake 7-9 another shake 10-12 celebrate protein bar at 2-4 meal at 5 pm chicken (not measuring) Drinking 40 oz additional water Exercise plan: going to join , but hasn't done so yet as there was a problem [facility] Medical History Chronic constipation Intestinal malabsorption following gastrectomy BMI 25.0-25.9,adult Intestinal malabsorption Surgical History Hx of removal of ovary History of carpal tunnel surgery S/P laparoscopic sleeve gastrectomy Family History Father DM (diabetes mellitus) Mother HTN (hypertension) Arthritis Brother No problems noted. Sister No problems noted. 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 Davis Code(s): Z98.84 - Bariatric surgery status Category: Surgical Plan: Change meal plan slightly: celebrate 4 in 1, 1/2 scoop in 8 oz soy milk at 5-7 another shake 7-9 another shake 10-12 celebrate protein bar at 2-4 meal at 5 pm 5 forks of protein and 5 forks of vegetables (encouraged to measure portions accurately) Another shake at 7-9 Strongly encouraged to join [employer]. Discussed the importance of exercise as it relates to her weight loss goals. Recommend recumbent bike with a goal of burning 300 calories per day, 7 days a week. I have made the recommendation for changes to her meal plan as listed above until she is able to get back into the right BMI nico. we will have her return to the office in 2 months, calling sooner with any questions or concerns, encouraged to text weights weekly and if any problems.
--- OUTSIDE RECORDS SUMMARY | 2025-03-12 14:49 | XMS_ITS ---
Author Name [facility] Organization Unknown Care Team Organization Name Specialty Phone Email Start Date End Da te [facility] Termed, PROVIDER Primary Care 12/04/202202/27
--- OUTSIDE RECORDS SUMMARY | 2025-03-12 14:49 | XMS_ITS | Encounter Summary ---
Author Organization [facility] Address [address] [place] [address] [address] [place] [address] Care Team Providers Care Director Banking Name Role Phone Unavailable Primary Care Provider Unavailabl e Encounter Details Date Type Department Care Team (Latest Contact Info) Description 09/11/2019 Abstract [facility] CONVERSIONS Dental, Provider, DDS Social [...] Description 06/22/2025 3:00 PM EST Office Visit [facility] ADULT DENTAL [address] [place] [address] Americo Toddaris [address] [place] [address] documented as of this encounter Visit Diagnoses Not on filedocumented in this encounter
--- OUTSIDE RECORDS SUMMARY | 2025-03-12 14:49 | XMS_ITS | Encounter Summary ---
Author Organization [facility] Address [address] [place] [address] Care Team Providers Care Parking Control Officer Name Role Phone Marisol Arteaga MD Primary Care Provider + Reason for Visit * Reason Onset Date Comments REFERRAL 01/26/2023 Encounter Details Date Type Department Care Team Description 01/26/2023 Telephone Adult Medicine [facility] [address] [place] [phone] Marisol Arteaga MD [address] [place] [address] [phone] REFERRAL Social History Tobacco Use Types Packs/Day [...] insurance does the patient have today? Payor: [facility] / Plan: O $30 [place] 1500 / Product Type: HMO [id number] Effective 04/29/09: BCBS will not retro referral [...] insurance must be obtained and registered in [facility] or their referral can not be [...] Is this visit:Initial Visit Address of Specialist: [address] [place] [phone] Phone # of Specialist: Fax #: (if applicable): Does patient have an appointment scheduled?: NO Date of appointment- (including a retro-request): Is this appointment related to: Not MVA, WC or Surgery related documented in this encounter Plan of Treatment Not on file documented as of this encounter Visit Diagnoses Not on filedocumented in this encounter Care Teams Parking Control Officer Relationship Specialty Start Date End Date Marisol Arteaga MD [address] [place] [phone] PCP - General Internal Medicine 01/16/23 documented as of this encounter
== END 2025-03-12 14:16 | disposition home or self-care (01) ==
LOC: HO.HBS 14:02
PROVIDERS: PCP Family Medicine; Visit Provider Physician Assistant Surgical
DX: E66.01 Morbid (severe) obesity due to excess calories (principal); Z68.41 Body mass index [BMI] 40.0-44.9, adult; Z90.3 Acquired absence of stomach [part of]; Z98.84 Bariatric surgery status
CPT/HCPCS: 98013